=== PATIENT | female | born 1960 | race Caucasian/White ===

== ENCOUNTER → 2017-07-01 | Outpatient (CLI) | payer BC, SELFPAY | PROVIDERS: Referring Provider Physician Assistant; Visit Provider Nurse Practitioner Family | DX: R91.1 Solitary pulmonary nodule (principal); R73.9 Hyperglycemia, unspecified; K57.92 Diverticulitis of intestine, part unspecified, without perforation or abscess without bleeding; R10.32 Left lower quadrant pain | CPT/HCPCS: 36415; 71250; 74177; 82565; 83036; 84520; Q9967 ==

== ENCOUNTER → 2017-07-10 | Outpatient (CLI) | payer BC, SELFPAY | PROVIDERS: Family Provider Emergency Medicine; Visit Provider Nurse Practitioner Family | DX: R06.02 Shortness of breath (principal) | CPT/HCPCS: 94060; 94620; 94640; 94727; 94729 ==

== ENCOUNTER → 2017-07-20 12:42 | Outpatient (CLI) | payer BC, SELFPAY ==
--- NOTE | 2017-07-20 | XR_ITS ---
XR chest CHP 2V 1626 hours HISTORY: Follow-up biopsy, evaluate for pneumothorax ITS.REASON: SP CT BX RO PNEUMO DO ON EXPIRATION ORDERING PHYSICIAN: Laurie Baker PATIENT AGE: 57 years COMPARISON: Same day FINDINGS: The cardiomediastinal silhouette and pulmonary vascularity are within normal limits. The lungs are clear without infiltrates, suspicious nodules, or pleural effusions. No evidence of pneumothorax. Previously noted vague opacity in the right lung base laterally not apparent on this exam. The pulmonary nodule which was biopsied is below limits of resolution on the radiograph. No acute bony abnormalities. IMPRESSION: No acute finding, no evidence of pneumothorax
[2017-07-20 13:02] LABS: Basophils # 0.1 K/mm3 (0-0.2); Basophils % 0.5 % (0.1-2.0); Eosinophils # 0.4 K/mm3 (0.0-0.4); Eosinophils % 2.4 % (0.1-12.0); Hematocrit 45.4 % (37.0-47.0); Hemoglobin 14.9 g/dL (12.2-16.2); Lymphocytes # 4.4 K/mm3 (0.7-4.5); Lymphocytes % 28.5 K/mm3 (10-50); Mean Corpuscular HGB Conc 32.8 g/dL (31.8-35.4); Mean Corpuscular Hemoglobin 27.9 pg (27.0-31.2); Mean Corpuscular Volume 85.1 fl (81-99); Mean Platelet Volume 7.9 fl (7.4-10.4); Monocytes # 0.6 K/mm3 (0.1-1.0); Monocytes % 3.8 % (1.7-9.3); Neutrophils % 64.8 % (37.0-80.0); Platelet Count 372 K/mm3 (142-424); Red Blood Count 5.33 M/mm3 (4.20-5.40); White Blood Count 15.4 K/mm3 (4.8-10.8)
--- NOTE | 2017-07-20 13:03 | CT_ITS ---
CT CHEST WO CON CT ORGAN SITE LUNG RT, CT BIOPSY GUIDED NEEDLE, CLINICAL INDICATION: ITS.REASON: LUNG NODULE RLL ORDERING PHYSICIAN: Laurie Baker PATIENT AGE: 57 years COMPARISON: 07/01/2017 FINDINGS: Prebiopsy CT chest: CT chest performed without contrast was again confirms the presence of a soft tissue nodule in the right lung base anterolaterally containing a small lobulation. The nodule itself measures approximately 2 x 1.5 cm. TECHNIQUE: Following obtaining informed consent under aseptic conditions and local anesthesia with 1% lidocaine, a 22-gauge biopsy needle was inserted into the lesion under CT guidance. There was some difficulty with needle placement due to overlying rib. 3 passes were made into the nodule. On the final pass patient did have some minor hemoptysis. Pathology confirmed a specimen. Post biopsy x-ray showed no evidence of pneumothorax. There was some minor opacification adjacent to the nodule on the post biopsy images suggesting a small amount of acinar hemorrhage. Cytology: Negative for malignancy. Benign bronchial cells mesothelial cells and pulmonary macrophages. IMPRESSION: Status post CT-guided FNA of the right lower lobe nodule. Cytology was benign. However, recommend continued follow-up as there was some difficulty and biopsy the nodule due to overlying rib. Biopsy with LVATS may provide further evaluation if clinically desired.
[2017-07-20 13:04] LABS: MANUAL DIFFERENTIAL MANUAL DIFFERENTIAL (MANUAL DIFF)
[2017-07-20 13:14] LABS: Activated Partial Thrombo Time 24.1 seconds (23.6-34.0); INR 0.95 (0.9-1.1); Prothrombin Time 10.3 seconds (9.4-11.8)
[2017-07-20 13:58] LABS: Eosinophils % 3 % (0-3); Lymphocytes % 27 % (10-50); Monocytes % 2 % (2-9); Neutrophils % 67 % (42-76); Total Cells Counted 100
[2017-07-20 13:59] LABS: Platelet Estimate Normal
--- NOTE | 2017-07-20 14:34 | XR_ITS ---
XR chest 2V HISTORY: Follow-up lung biopsy, pulmonary nodule ITS.REASON: RO PNEUMOTHORAX DO 2 VIEW CXR ON EXPIRATION ORDERING PHYSICIAN: Laurie Baker PATIENT AGE: 57 years COMPARISON: 06/11/2017 FINDINGS: The cardiomediastinal silhouette and pulmonary vascularity are within normal limits. There is vague increased density in the right lung base overlying the seventh rib anteriorly may be due to small amount of hemorrhage from the biopsy. No evidence of pneumothorax. No pleural effusion.. No acute bony abnormalities. IMPRESSION: Vague opacity right lung base laterally which could be due to small amount of hemorrhage from the biopsy. No evidence of pneumothorax
--- NOTE | 2017-07-20 15:01 | HMH.ITSHM ---
LISINOPRIL HCTZ CITALOPRAM LEVOTHYROXIN VIT D METFORMIN
== END ==
PROVIDERS: Family Provider Emergency Medicine; PCP Emergency Medicine; Visit Provider Nurse Practitioner Family
DX: R91.1 Solitary pulmonary nodule (principal)
CPT/HCPCS: 10022; 77012; 36415; 71046; 71250; 85007; 85025; 85610; 85730

== ENCOUNTER 2017-08-03 08:28 | Day surgery (SDC) | payer BC, SELFPAY ==
[2017-07-29 11:29] VITALS: BMI 28.5
[2017-08-03] VITALS (8 sets, daily range): BP systolic 94–126; BP diastolic 59–79; PULSE 61–71; RESP 18–20; TEMP 36.6–36.7; O2SAT 93–100
[2017-08-03 09:02] LABS: POC Glucose,Bedside 127 mg/dL
--- NOTE | 2017-08-03 09:05 | HMH.ANESCL ---
[facility] Anesthesia Checklist - Patient Identification Patient Identification: Arm Band, Verbal (Name & ) - Structural Data Admitted From: Home Planned Operative Procedure/s: colonoscopy Consent for Planned Operative Procedure(s) Verified: Yes Verified Documents: Surgical Consent, History and Physical - NPO Status Verified Time NPO: 00:00 - Additional verifications Patient : No Anesthesia Reactions: No Hx Blood Transfusions: No Blood Transfusion Reaction: No Cephalosporin Allergy: No Previous Colonoscopy: No - Cardiovascular Assessment Heart Sounds: S1 & S2 Pulse Strength: Strong Pulse Rhythm: Regular Peripheral Edema: No - Airway Assessment C-Spine Mobility Assessed: Yes TMJ Mobility Assessed: Yes Dentition: Dentures-good fit - Neurological Assessment Level of Consciousness: Awake, Alert, Appropriate Hx Seizures: No Numbness or tingling in extremities: No - Anesthesia Plan Anesthesia Risk discussed: Yes Anesthesia Plan: Verified ASA Class: III Anesthesia Type: MAC [facility] Anesthesia HX I have reviewed the patient's past medical history: Yes Medical History: Reports:: Diabetes Mellitus Type 2 (NIDDM), Hyperlipidemia, Hypertension Denies:: Diabetes Mellitus Type 1, Internal Pacemaker, Lung Disease, Seizures Other Medical History: Reports: Hypothyroidism Laterality Cases: Bilateral: Total Hip Replacement Other Surgeries: Yes: Hysterectomy-Partial. No: Pacemaker Amputation: No Fractures: No Comment: choly *Family Hx:: Diabetes, Heart Attack, Hypertension
--- NOTE | 2017-08-03 09:25 | HMH.PROC ---
[facility] Procedure Note Procedure Note:: Colonoscopy Procedure Report: Colonoscopy with cold and hot snare polypectomy and Endo Clip placement Endoscopist: Pranav Berkowitz II, MD Referring physician: Yovani Garcia MD Date of Procedure: August 03, 2017 Equipment: Olympus 180 variable stiffness pediatric colonoscope Sedation: MAC sedation Indication: Mrs. Hollingsworth is a 57-year-old female who is here for initial screening colonoscopy. The patient did have diverticulitis after 2016 but this has resolved. She does have mostly regular bowel movements but does have bouts of diarrhea intermittently. She does state that her maternal uncle had colon cancer in his 60s and her sister had adenomatous colon polyps. The patient reports no abdominal pain, rectal bleeding, weight loss or change in her bowel habits. Procedure: Prior to the procedure, a history and physical exam was performed, and patient's medications and allergies were reviewed. The risks, benefits and alternatives of the sedation and procedure were discussed with the patient. All questions were answered and informed consent was obtained. The patient was brought to the procedure room. Patient identification and proposed procedure were verified by the physician and the nurse. The patient was placed in a left lateral decubitus position and the scope was passed under direct vision. Throughout the procedure, the patient's blood pressure, pulse, and oxygen saturations were monitored continuously. The colonoscopy was accomplished without difficulty. The patient tolerated the procedure well. Findings: On digital rectal examination there was normal rectal tone. There were no external hemorrhoids. The colonoscope was introduced through the anal canal to the rectum and advanced to the cecum. The ileocecal valve and appendiceal orifice were identified. The scope was advanced a short distance into the ileum which appeared grossly normal. The scope was then withdrawn into the colon. There were 17 colon polyps identified in the ascending ?2, transverse ?6, descending ?1 and sigmoid ?8. These ranged in size from 4-14 mm and all but 1 were all removed via cold snare polypectomy. The descending polyp was 14 mm and this was removed via snare cautery. The post polypectomy site was closed with an Endo Clip. There were scattered diverticuli throughout the descending and sigmoid colon (LEFT colon). The rectum itself was normal. Upon retroflexion within the rectum there were grade 1 internal hemorrhoids. Impression: 1. Colonic polyps ?17 2. Left-sided diverticulosis 3. Grade 1 internal hemorrhoids Plan: I will follow up the polyp pathology and recommend repeat colonoscopy again in 1-2 years based upon the polyp histology. I would encourage fiber supplementation on a long-term daily maintenance basis.
--- NOTE | 2017-08-03 09:49 | SUR.OPER ---
CAUTERY 200, COAG 25. GROUNDED TO RT THIGH. SKIN INTACT @ REMOVAL.
--- NOTE | 2017-08-03 10:03 | P.PCN_ITS ---
[facility] Procedure Note Procedure Note:: Colonoscopy Procedure Report: Colonoscopy with cold and hot snare polypectomy and Endo Clip placement Endoscopist: Pranav Berkowitz II, MD Referring physician: Yovani Garcia MD Date of Procedure: August 03, 2017 Equipment: Olympus 180 variable stiffness pediatric colonoscope Sedation: MAC sedation Indication: Mrs. Hollingsworth is a 57-year-old female who is here for initial screening colonoscopy. The patient did have diverticulitis after 2016 but this has resolved. She does have mostly regular bowel movements but does have bouts of diarrhea intermittently. She does state that her maternal uncle had colon cancer in his 60s and her sister had adenomatous colon polyps. The patient reports no abdominal pain, rectal bleeding, weight loss or change in her bowel habits. Procedure: Prior to the procedure, a history and physical exam was performed, and patient' s medications and allergies were reviewed. The risks, benefits and alternatives of the sedation and procedure were discussed with the patient. All questions were answered and informed consent was obtained. The patient was brought to the procedure room. Patient identification and proposed procedure were verified by the physician and the nurse. The patient was placed in a left lateral decubitus position and the scope was passed under direct vision. Throughout the procedure, the patient's blood pressure, pulse, and oxygen saturations were monitored continuously. The colonoscopy was accomplished without difficulty. The patient tolerated the procedure well. Findings: On digital rectal examination there was normal rectal tone. There were no external hemorrhoids. The colonoscope was introduced through the anal canal to the rectum and advanced to the cecum. The ileocecal valve and appendiceal orifice were identified. The scope was advanced a short distance into the ileum which appeared grossly normal. The scope was then withdrawn into the colon. There were 17 colon polyps identified in the ascending ?2, transverse ?6, descending ?1 and sigmoid ?8. These ranged in size from 4-14 mm and all but 1 were all removed via cold snare polypectomy. The descending polyp was 14 mm and this was removed via snare cautery. The post polypectomy site was closed with an Endo Clip. There were scattered diverticuli throughout the descending and sigmoid colon (LEFT colon). The rectum itself was normal. Upon retroflexion within the rectum there were grade 1 internal hemorrhoids. Impression: 1. Colonic polyps ?17 2. Left-sided diverticulosis 3. Grade 1 internal hemorrhoids Plan: I will follow up the polyp pathology and recommend repeat colonoscopy again in 1 -2 years based upon the polyp histology. I would encourage fiber supplementation on a long-term daily maintenance basis.
== END 2017-08-03 11:20 | disposition home or self-care (01) ==
LOC: OUTP 08:29
PROVIDERS: Family Provider Emergency Medicine; PCP Nurse Practitioner Family; Visit Provider Internal Medicine Gastroenterology
PROC: 0DJD8ZZ Inspection of Lower Intestinal Tract, Via Natural or Artificial Opening Endoscopic (ICD-10-PCS; CPT 45378; principal; 2017-08-03 09:30)
DX: Z12.11 Encounter for screening for malignant neoplasm of colon (principal); K63.5 Polyp of colon; K57.32 Diverticulitis of large intestine without perforation or abscess without bleeding; K64.0 First degree hemorrhoids; E11.9 Type 2 diabetes mellitus without complications
CPT/HCPCS: 45380; 82962

== ENCOUNTER → 2017-09-24 09:43 | Outpatient (CLI) | payer BC, SELFPAY ==
[2017-09-24 09:59] LABS: Basophils # 0.1 K/mm3 (0-0.2); Basophils % 0.4 % (0.1-2.0); Eosinophils # 0.3 K/mm3 (0.0-0.4); Eosinophils % 2.6 % (0.1-12.0); Hematocrit 45.1 % (37.0-47.0); Hemoglobin 15.3 g/dL (12.2-16.2); Lymphocytes # 3.3 K/mm3 (0.7-4.5); Lymphocytes % 26.8 K/mm3 (10-50); Mean Corpuscular HGB Conc 33.9 g/dL (31.8-35.4); Mean Corpuscular Hemoglobin 29.1 pg (27.0-31.2); Mean Corpuscular Volume 85.9 fl (81-99); Mean Platelet Volume 7.7 fl (7.4-10.4); Monocytes # 0.5 K/mm3 (0.1-1.0); Monocytes % 3.7 % (1.7-9.3); Neutrophils # 8.1 K/mm3 (1.8-7.8); Neutrophils % 66.5 % (37.0-80.0); Platelet Count 339 K/mm3 (142-424); Red Blood Count 5.25 M/mm3 (4.20-5.40); Red Cell Distribution Width 13.8 % (11.5-17.5); White Blood Count 12.2 K/mm3 (4.8-10.8)
[2017-09-24 10:35] LABS: Alanine Aminotransferase 33 U/L (12-78); Albumin Level 3.5 gm/dL (3.4-5.0); Albumin/Globulin Ratio 0.9 (1.1-1.8); Alkaline Phosphatase 91 U/L (46-116); Anion Gap 11.8 mEq/L (5-15); Aspartate Amino Transferase 16 U/L (15-37); Bilirubin,Total 0.4 mg/dL (0.2-1.0); Blood Urea Nitrogen 13 mg/dL (7-18); Calcium 9.1 mg/dL (8.5-10.1); Carbon Dioxide 28 mmol/L (21.0-32.0); Chloride 103 mmol/L (98-107); Chol/HDL Ratio 4.1 (1-3.5); Cholesterol 170 mg/dL (140-200); Creatinine,Serum 0.56 mg/dL (0.55-1.02); Estimated Glomerular Filt Rate 111 ml/min (>60); GFR (African American) 135 ML/MIN (>60); Globulin 4.1 gm/dl (1.3-3.2); Glucose 106 mg/dL (74-106); HDL Cholesterol 41 mg/dL (29-89); LDL Cholesterol 104 mg/dL (0-130); Potassium 3.8 mmoL/L (3.5-5.1); Sodium 139 mmol/L (136-145); T4 (Thyroxine) 12.3 ug/dl (4.7-13.3); Thyroid Stimulating Hormone 1.63 uIU/ml (0.358-3.740); Total Protein,Serum 7.6 gm/dL (6.4-8.2); Triglycerides 125 mg/dL (30-200); VLDL Cholesterol 25 mg/dL (0-40)
[2017-09-25 15:36] LABS: Vitamin D 25 Hydroxy 27.6 ng/mL (30.0-100.0)
[2017-09-25 22:02] LABS: Hemoglobin A1C 6.1 % (0.0-7.0)
== END ==
PROVIDERS: Visit Provider Nurse Practitioner Family
DX: E11.9 Type 2 diabetes mellitus without complications (principal); R53.83 Other fatigue; E78.5 Hyperlipidemia, unspecified
CPT/HCPCS: 36415; 80053; 80061; 82652; 83036; 84436; 84443; 85025

== ENCOUNTER → 2018-02-25 15:25 | Outpatient (CLI) | payer BC, SELFPAY ==
[2018-02-25 16:17] LABS: Hemoglobin A1C 6.6 % (0.0-7.0)
== END ==
PROVIDERS: Visit Provider Nurse Practitioner Family
DX: E11.9 Type 2 diabetes mellitus without complications (principal)
CPT/HCPCS: 36415; 83036

== ENCOUNTER → 2019-04-06 18:11 | Outpatient (CLI) | payer BC, SELFPAY ==
[2019-04-06 19:39] LABS: Basophils # 0.1 K/mm3 (0-0.2); Basophils % 0.5 % (0.1-2.0); Eosinophils # 0.3 K/mm3 (0.0-0.4); Eosinophils % 2.1 % (0.1-12.0); Hematocrit 48.1 % (37.0-47.0); Hemoglobin 15.1 g/dL (12.2-16.2); Lymphocytes # 3.5 K/mm3 (0.7-4.5); Lymphocytes % 25.8 % (10-50); Mean Corpuscular HGB Conc 31.4 g/dL (31.8-35.4); Mean Corpuscular Hemoglobin 27.9 pg (27.0-31.2); Mean Corpuscular Volume 88.7 fl (81-99); Mean Platelet Volume 9.1 fl (7.4-10.4); Monocytes # 0.7 K/mm3 (0.1-1.0); Monocytes % 5.4 % (1.7-9.3); Neutrophils # 8.9 K/mm3 (1.8-7.8); Neutrophils % 66.3 % (37.0-80.0); Platelet Count 432 K/mm3 (142-424); Red Blood Count 5.43 M/mm3 (4.20-5.40); White Blood Count 13.5 K/mm3 (4.8-10.8)
[2019-04-06 19:55] LABS: Alanine Aminotransferase 30 U/L (12-78); Albumin Level 3.9 gm/dL (3.4-5.0); Alkaline Phosphatase 109 U/L (46-116); Anion Gap 14.9 mEq/L (5-15); Aspartate Amino Transferase 24 U/L (15-37); Bilirubin,Total 0.6 mg/dL (0.2-1.0); Blood Urea Nitrogen 10 mg/dL (7-18); Calcium 9.1 mg/dL (8.5-10.1); Carbon Dioxide 27 mmol/L (21.0-32.0); Chloride 99 mmol/L (98-107); Cholesterol 174 mg/dL (140-200); Creatinine,Serum 0.64 mg/dL (0.55-1.02); Estimated Glomerular Filt Rate 95 ml/min (>60); GFR (African American) 115 ML/MIN (>60); Globulin 4.1 gm/dl (1.3-3.2); Glucose 98 mg/dL (74-106); HDL Cholesterol 35 mg/dL (29-89); LDL Cholesterol 105 mg/dL (0-130); Potassium 3.9 mmoL/L (3.5-5.1); Sodium 137 mmol/L (136-145); T4 (Thyroxine) 16.9 ug/dl (4.7-13.3); Thyroid Stimulating Hormone 2.61 uIU/ml (0.358-3.740); Triglycerides 169 mg/dL (30-200); VLDL Cholesterol 34 mg/dL (0-40)
[2019-04-06 21:04] LABS: Hemoglobin A1C 7.5 % (0.0-7.0)
[2019-04-08 10:10] LABS: Creatinine, Urine 34.9 mg/dL (Not Estab.); Microalbumin, Urine 68.9 ug/mL (Not Estab.)
[2019-04-09 13:46] LABS: Vitamin D 25 Hydroxy 27.9 ng/mL (30.0-100.0)
== END ==
PROVIDERS: Visit Provider Nurse Practitioner Family
DX: E11.9 Type 2 diabetes mellitus without complications (principal); E03.9 Hypothyroidism, unspecified; E55.9 Vitamin D deficiency, unspecified; Z79.84 Long term (current) use of oral hypoglycemic drugs
CPT/HCPCS: 80053; 80061; 82043; 82570; 82652; 83036; 84436; 84443; 85025

== ENCOUNTER → 2020-03-27 15:54 | Outpatient (CLI) | payer BC, SELFPAY ==
[2020-03-27 16:24] LABS: Basophils # 0.1 K/mm3 (0-0.2); Basophils % 0.5 % (0.1-2.0); Eosinophils # 0.3 K/mm3 (0.0-0.4); Eosinophils % 2.1 % (0.1-12.0); Hemoglobin 15.4 g/dL (12.2-16.2); Lymphocytes # 3.7 K/mm3 (0.7-4.5); Lymphocytes % 26.4 % (10-50); Mean Corpuscular HGB Conc 34.2 g/dL (31.8-35.4); Mean Corpuscular Hemoglobin 29.1 pg (27.0-31.2); Mean Corpuscular Volume 84.9 fl (81-99); Mean Platelet Volume 8.1 fl (7.4-10.4); Monocytes # 0.8 K/mm3 (0.1-1.0); Monocytes % 5.6 % (1.7-9.3); Neutrophils # 9.3 K/mm3 (1.8-7.8); Neutrophils % 65.4 % (37.0-80.0); Platelet Count 440 K/mm3 (142-424); Red Cell Distribution Width 13.9 % (11.5-17.5); White Blood Count 14.2 K/mm3 (4.8-10.8)
[2020-03-27 16:53] LABS: Chloride 99 mmol/L (98-107); Potassium 4.3 mmoL/L (3.5-5.1); Sodium 136 mmol/L (136-145)
[2020-03-27 16:55] LABS: Alanine Aminotransferase 20 U/L (12-78); Albumin/Globulin Ratio 1.2 (1.1-1.8); Alkaline Phosphatase 95 U/L (38-126); Anion Gap 13.3 mEq/L (5-15); Aspartate Amino Transferase 20 U/L (14-36); Bilirubin,Total 0.9 mg/dl (0.2-1.3); Blood Urea Nitrogen 16 mg/dl (7-17); Carbon Dioxide 28 mmol/L (22.0-30.0); Estimated Glomerular Filt Rate 126 ml/min (>60); GFR (African American) 152 ML/MIN (>60); Globulin 3.4 g/dL (1.3-3.2); Total Protein,Serum 7.4 g/dl (6.3-8.2)
[2020-03-27 16:56] LABS: Calcium 10.2 mg/dl (8.4-10.2); Chol/HDL Ratio 4.3 (1-3.5); Cholesterol 173 mg/dl (140-200); Glucose 90 mg/dl (74-100); HDL Cholesterol 40 mg/dl (40-60); Triglycerides 133 mg/dl (30-150); VLDL Cholesterol 27 mg/dL (0-40)
[2020-03-27 17:07] LABS: Direct LDL Cholesterol 112.55 mg/dL (100-129)
[2020-03-27 17:13] LABS: T4 (Thyroxine) 13.4 ug/dl (5.53-11.0)
[2020-03-27 17:19] LABS: Hemoglobin A1C 6.5 % (4.0-6.0)
[2020-03-27 17:26] LABS: Thyroid Stimulating Hormone 3.65 uIU/mL (0.465-4.68)
[2020-03-27 18:24] LABS: Creatinine,Urine Random 69 mg/dL (Not Estab.); Microalbumin < 6.000 mg/L (0-16.7)
== END ==
PROVIDERS: Visit Provider Nurse Practitioner Family
DX: E11.9 Type 2 diabetes mellitus without complications (principal); R53.83 Other fatigue; E66.9 Obesity, unspecified
CPT/HCPCS: 36415; 80053; 80061; 82043; 82570; 83036; 84436; 84443; 85025

== ENCOUNTER 2020-04-16 00:58 | Emergency (ER) | payer BC, MEDICAID, SELFPAY ==
[2020-04-16 01:00] VITALS: BP 131/72; PULSE 95; RESP 16; TEMP 37.3; O2SAT 96; BMI 30.9
--- NOTE | 2020-04-16 01:25 | XR_ITS ---
PROCEDURE: XR CHEST 2V CLINICAL HISTORY: fever Smoker, fever COMPARISON: CR CXR CHEST(2 VIEWS-NOT PORTABLE) from 06/11/[id number] ABD PELVIS W/ CONTRAST from 06/16/[address] CHEST W/O CONTRAST from 07/01/[id number] organ site from 07/20/2017 CR CXR2V XR chest 2V from 07/20/2017 DX CXRCHP XR chest CHP 2V from 07/20/2017 FINDINGS: The cardiomediastinal silhouette and pulmonary vascularity are within normal limits. No lobar consolidation or collapse. There is a 6 mm nodular opacity overlying the left upper lobe at the anterior aspect of the left 3rd rib. The remaining lungs are clear. Degenerative changes thoracic spine IMPRESSION: No acute finding. Faint 6 mm nodular opacity left upper lobe not readily apparent previously. Recommend follow-up to confirm stability Dictated by: Jorge Alvarado MD 04/16/2020 05:53 Jorge Alvarado MD in [place] 04/16/2020 05:53
[2020-04-16 01:30] VITALS: BP 100/56; PULSE 79; RESP 16; O2SAT 94
[2020-04-16 01:33] LABS: Microscopic, Urine URINE MICROSCOPIC (MICROSCOPIC)
[2020-04-16 01:35] LABS: Basophils # 0.1 K/mm3 (0-0.2); Basophils % 0.2 % (0.1-2.0); Eosinophils # 0.1 K/mm3 (0.0-0.4); Eosinophils % 0.3 % (0.1-12.0); Hematocrit 43.3 % (37.0-47.0); Hemoglobin 14.4 g/dL (12.2-16.2); Lymphocytes # 0.9 K/mm3 (0.7-4.5); Lymphocytes % 4.2 % (10-50); Mean Corpuscular HGB Conc 33.3 g/dL (31.8-35.4); Mean Corpuscular Hemoglobin 28.4 pg (27.0-31.2); Mean Corpuscular Volume 85.3 fl (81-99); Mean Platelet Volume 7.8 fl (7.4-10.4); Monocytes # 0.5 K/mm3 (0.1-1.0); Monocytes % 2.3 % (1.7-9.3); Neutrophils # 20.2 K/mm3 (1.8-7.8); Platelet Count 372 K/mm3 (142-424); Red Blood Count 5.07 M/mm3 (4.20-5.40); Red Cell Distribution Width 14.1 % (11.5-17.5); White Blood Count 21.7 K/mm3 (4.8-10.8)
[2020-04-16 01:41] LABS: Alanine Aminotransferase 35 U/L (12-78); Albumin Level 4.4 g/dl (3.5-5.0); Albumin/Globulin Ratio 1.2 (1.1-1.8); Alkaline Phosphatase 94 U/L (38-126); Anion Gap 14.2 mEq/L (5-15); Aspartate Amino Transferase 34 U/L (14-36); Bilirubin,Total 0.9 mg/dl (0.2-1.3); Blood Urea Nitrogen 14 mg/dl (7-17); Calcium 9.6 mg/dl (8.4-10.2); Carbon Dioxide 28 mmol/L (22.0-30.0); Chloride 100 mmol/L (98-107); Creatinine Clearance Estimated 96 mL/min (50-200); Estimated Glomerular Filt Rate 73 ml/min (>60); GFR (African American) 89 ML/MIN (>60); Globulin 3.8 g/dL (1.3-3.2); Glucose 143 mg/dl (74-100); Potassium 4.2 mmoL/L (3.5-5.1); Sodium 138 mmol/L (136-145); Total Protein,Serum 8.2 g/dl (6.3-8.2)
[2020-04-16 01:43] LABS: MANUAL DIFFERENTIAL MANUAL DIFFERENTIAL (MANUAL DIFF)
[2020-04-16 01:45] LABS: Appearance,Urine CLEAR (Clear); Blood, Urine Negative (Negative); Color,Urine YELLOW (Yellow); Glucose,Urine (UA) Negative (Negative); Ketones,Urine TRACE (Negative); Lactic Acid 2.2 mmol/L (0.7-2.1); Leukocyte Esterase,Urine Negative (Negative); Nitrate,Urine Negative (Negative); PH,Urine 8.5 (5.0-8.5); Protein,Urine Negative (Negative); Specific Gravity, Urine 1.015 (1.005-1.030)
[2020-04-16 01:49] LABS: Bilirubin,Urine Negative (Negative); Squamous Epithelial Cell,Urine 20-50 #/hpf (0-5)
[2020-04-16 01:52] LABS: Lymphocytes % 2 % (10-50); Neutrophils % 89 % (42-76); Platelet Estimate Normal; RBC Morphology Normal; Total Cells Counted 100
[2020-04-16 01:55] LABS: Coronavirus 19 IgG Antibody Negative (Negative); Coronavirus 19 IgM Antibody Negative (Negative)
--- NOTE | 2020-04-16 01:57 | HMH.EDFEV ---
ED Disposition Clinical Impression: Febrile illness, acute, SIRS (systemic inflammatory response syndrome) Disposition: Home, Self-Care Condition on Discharge: Good Instructions: DI for Fever (Symptom) -- Adult Additional Instructions: fluids and call pcp for follow up this week and culture results Prescriptions: levoFLOXacin [Levaquin 500mg tab] 500 mg PO DAILY #7 tab Transmission Status: Pending to [id number] Referrals: Yovani Garcia MD [Primary Care Provider] - - Critical Care Critical Care Time: No Attestation: On 04/16/20, the high probability of a clinically significant, sudden or life threatening deterioration of the following system(s) required my full and direct attention, intervention and personal management. The time I documented below is in addition to time spent performing reported procedures but includes the following listed in this critical care notation. Medical Decision Making - Medical Records Medical records reviewed: Yes: I reviewed the patient's medical records. - [place] Inquiry Pt receiving controlled substance: No Vital Signs: 04/16/20 01:00 04/16/20 01:30 Temperature 99.2 F Temperature Source Oral Pulse Rate [Left Radial] 95 H 79 Respiratory Rate 16 16 Blood Pressure [Right Arm] 131/72 100/56 L Blood Pressure Mean [Right Arm] 91 70 Blood Pressure Source [Right Arm] Automatic Cuff Automatic Cuff Blood Pressure Position [Right Arm] Sitting Sitting 02 Sat by Pulse Oximetry 96 94 L Oxygen Delivery Method Room Air Room Air - Lab Data Lab results reviewed: Yes: I reviewed the patient's lab results. Lab Results 04/16/20 01:20: Urine Color Yellow, Urine Appearance Clear, Urine pH 8.5, Ur Specific [place] 1.015, Urine Protein Negative, Urine Glucose (UA) Negative, Urine Ketones Trace, Urine Blood Negative, Urine Nitrate Negative, Urine Bilirubin Negative, Urine Urobilinogen 2.0, Ur Leukocyte Esterase Negative, Ur Squamous Epith Cells 20-50, Ur Renal Epithelial Cell 10-20 04/16/20 01:20: Sodium 138, Potassium 4.2, Chloride 100, Carbon Dioxide 28, Anion Gap 14.2, BUN 14, Creatinine 0.80, Estimated Creat Clear 96, Estimated GFR 73, Est GFR ( Amer) 89, Glucose 143 H, Calcium 9.6, Total Bilirubin 0.9, AST 34, ALT 35, Alkaline Phosphatase 94, Total Protein 8.2, Albumin 4.4, Globulin 3.8 H, Albumin/Globulin Ratio 1.2 04/16/20 01:20: Lactate 2.2 H 04/16/20 01:20: Influenza Type A Ag Negative, Influenza Type B Ag Negative 04/16/20 01:20: WBC 21.7 H*, RBC 5.07, Hgb 14.4, Hct 43.3, MCV 85.3, MCH 28.4, MCHC 33.3, RDW 14.1, Plt Count 372, MPV 7.8, Neut % (Auto) 93.0 H, Lymph % (Auto) 4.2 L, Mathews % (Auto) 2.3, Eos % (Auto) 0.3, Baso % (Auto) 0.2, Neut # (Auto) 20.2 H, Lymph # (Auto) 0.9, Mathews # (Auto) 0.5, Eos # (Auto) 0.1, Baso # (Auto) 0.1, Total Counted 100, Neutrophils % (Manual) 89 H, Band Neutrophils % 9.0 H, Lymphocytes % (Manual) 2 L, Platelet Estimate Normal, RBC Morphology Normal 04/16/20 01:20: SARS-CoV-2 IgG Ab (Rapid) Negative, SARS-CoV-2 IgM Ab (Rapid) Negative Result diagrams: 04/16/20 01:20 04/16/20 01:20 Orders (Tests/Meds): ORDERS Category Date Time Status XR chest 2V Stat Exams 04/16/20 01:25 Taken Covid-19 Nasal PCR ([facility]) Routine Lab 04/16/20 02:00 Received Blood Culture Stat Micro 04/16/20 01:20 Received - Radiology Data #1 Image(s): Chest Image Reviewed: Yes I reviewed the patient's radiology image Preliminary Findings: Normal/NAD Fever HPI - General Chief Complaint: Fever Stated Complaint: ,chills,confused,muscle aches Time Seen by Provider: 04/16/20 02:00 Mode of Arrival: Ambulatory Source of Information: Patient, Medical Record Limitations: No Limitations Description of Symptoms (Recalled from ER Triage Doc. by RN): pt stated she was on her way home from the store today around 7pm when she felt chilled pt got home and had a temp of 102.1 orally. pt took tylenol around 9pm and went to sleep. pt c/o a headache, body aches
[2020-04-16 02:30] VITALS: BP 114/63; PULSE 76; RESP 16; O2SAT 98
[2020-04-16 03:18] VITALS: BP 114/67; PULSE 78; RESP 16; TEMP 36.7; O2SAT 97
== END 2020-04-16 03:21 | disposition home or self-care (01) ==
PROVIDERS: Emergency Provider Emergency Medicine; PCP Emergency Medicine
DX: N30.00 Acute cystitis without hematuria (principal); R65.10 Systemic inflammatory response syndrome (SIRS) of non-infectious origin without acute organ dysfunction; Z20.828 Contact with and (suspected) exposure to other viral communicable diseases; E11.9 Type 2 diabetes mellitus without complications; I10 Essential (primary) hypertension; E78.5 Hyperlipidemia, unspecified; F41.8 Other specified anxiety disorders; E03.9 Hypothyroidism, unspecified; F17.210 Nicotine dependence, cigarettes, uncomplicated; Z96.641 Presence of right artificial hip joint; Z96.642 Presence of left artificial hip joint; Z79.899 Other long term (current) drug therapy
CPT/HCPCS: 71046; 80053; 81001; 83605; 85007; 85025; 86328; 87040; 87086; 87088; 87186; 87275; 87276; 96365; 99284; U0003

== ENCOUNTER → 2020-05-05 08:00 | Outpatient (CLI) | payer BC, MEDICAID, SELFPAY ==
[2020-05-05 09:48] LABS: Coronavirus 19 IgG Antibody Negative (Negative); Coronavirus 19 IgM Antibody Negative (Negative)
== END ==
PROVIDERS: Visit Provider Internal Medicine Gastroenterology
DX: Z01.818 Encounter for other preprocedural examination (principal); Z12.11 Encounter for screening for malignant neoplasm of colon
CPT/HCPCS: 36415; 86328

== ENCOUNTER 2020-05-07 07:36 | Day surgery (SDC) | payer BC, MEDICAID, SELFPAY ==
[2020-05-07] VITALS (7 sets, daily range): BP systolic 98–148; BP diastolic 57–70; PULSE 53–70; RESP 18; TEMP 36.1–36.7; O2SAT 90–97
[2020-05-07 08:02] LABS: POC Glucose,Bedside 118 (70-110)
--- NOTE | 2020-05-07 08:31 | HMH.PROC ---
[facility] Procedure Note Procedure Note:: Colonoscopy Procedure Report: Colonoscopy with cold snare polypectomy and cold biopsies Endoscopist: Praanv Berkowitz II, MD Referring physician: Yovani Garcia MD Date of Procedure: May 07, 2020 Equipment: Olympus 180 variable stiffness pediatric colonoscope Sedation: MAC sedation Indication: Mrs. Hollingsworth is a 60-year-old female who has had lower abdominal pain, cramps, diarrhea and rectal bleeding. She noted bloody mucousy diarrhea that was bright red in color. She was given antibiotics 2 to 3 weeks ago and had improvement. She states that this occurred after eating Polish cornbread. Colonoscopy is performed for diagnostic purposes. She did have some minor weight loss. The patient did have a colonoscopy almost 3 years ago (July 2017) at which time she had 17 colon polyps (tubular adenomas x10/hyperplastic polyps x7) removed. She does state that her maternal uncle had colon cancer in his 60s and she has sisters with adenomatous colon polyps. Procedure: Prior to the procedure, a history and physical exam was performed, and patient's medications and allergies were reviewed. The risks, benefits and alternatives of the sedation and procedure were discussed with the patient. All questions were answered and informed consent was obtained. The patient was brought to the procedure room. Patient identification and proposed procedure were verified by the physician and the nurse. The patient was placed in a left lateral decubitus position and the scope was passed under direct vision. Throughout the procedure, the patient's blood pressure, pulse, and oxygen saturations were monitored continuously. The colonoscopy was accomplished without difficulty. The patient tolerated the procedure well. Findings: On digital rectal examination there was normal rectal tone. There were no external hemorrhoids. The colonoscope was introduced through the anal canal to the rectum and advanced to the cecum. The ileocecal valve and appendiceal orifice were identified. The scope was advanced a short distance into the ileum which appeared grossly normal. The scope was then withdrawn into the colon. The cecum, ascending and transverse colon and mucosa were grossly normal. There was a diminutive 4 mm polyp in the descending colon removed via cold snare polypectomy. Within the distal descending and sigmoid colon there was haustral edema and mucosal edema without friability. This was in the watershed region of the colon and appeared to be healing colitis (probable healing ischemic colitis). Cold biopsies were obtained from this descending/sigmoid colon (left colon). There were scattered diverticuli throughout the descending and sigmoid colon (LEFT colon). The rectum itself was normal. Upon retroflexion within the rectum there were grade 1-2 internal hemorrhoids. The preparation was good throughout with [place] Preparation Score of 7 out of 9. The cecal time was 14 minutes. Impression: 1. Diminutive descending colon polyp 2. Resolving self-limited colitis (suspect resolving/regenerating ischemic colitis and watershed region?left colon) 3. Left-sided diverticulosis 4. Grade 1-2 internal hemorrhoids Plan: I would encourage dietary measures and bulk fiber supplementation. I will follow-up the biopsies. Based upon the patient's multiple adenomatous polyps in the past and family history, I would recommend repeat surveillance colonoscopy again in 5 years.
--- NOTE | 2020-05-07 08:35 | PC.NURSE ---
Pt arrived to post op having vomited small amt of yellow bile with small amt of bloody mucous during transport to post op. pt drowsy but responds to commands. VSS.
--- NOTE | 2020-05-07 08:44 | P.PN_ITS ---
[facility] Anesthesia Checklist - Patient Identification Patient Identification: Arm Band - Structural Data Admitted From: Home Planned Operative Procedure/s: colonoscopy Consent for Planned Operative Procedure(s) Verified: Yes Verified Documents: Surgical Consent, History and Physical - NPO Status Verified Time NPO: 00:00 - Additional verifications Anesthesia Reactions: No Hx Blood Transfusions: No Blood Transfusion Reaction: No - Airway Assessment C-Spine Mobility Assessed: Yes (mp2) TMJ Mobility Assessed: Yes Dentition: Edentulous - Neurological Assessment Level of Consciousness: Awake, Alert - Anesthesia Plan Anesthesia Risk discussed: Yes Anesthesia Plan: Verified ASA Class: III Anesthesia Type: MAC [facility] History I have reviewed the patient's past medical history: Yes Medical History: Reports:: Anxiety, Depression, Diabetes Mellitus Type 2, Hyperlipidemia, Hypertension Denies:: Cancer, Diabetes Mellitus Type 1, Internal Pacemaker, Lung Disease, MRSA, Seizures *Have you ever received a pneumonia vaccine?: No *Have you received a flu vaccine this season?: No Other Medical History: Reports: Hypothyroidism. Denies: Blood Transfusion Reaction Anesthesia experience/problems:: nac Laterality Cases: Bilateral: Total Hip Replacement Other Surgeries: Yes: Cholecystectomy, Colonoscopy, Hysterectomy-Total, Hysterectomy-Partial. No: Pacemaker Amputation: No Fractures: No - *Social History Last grade of school completed: Advanced degree Smoking Status: Current every day smoker Tobacco Type: cigarettes # Packs/Day (cigarettes): 1 #Yrs smoked (if former smoker): 30 Alcohol Intake: never Substance Use Type: denies use *Occupational Status:: employed Housing: house Household Members: significant other *Travel in the last 8 weeks: None - Psychiatric History Pschychiatric History:: Reports:: Anxiety, Depression Family Hx:: Diabetes, Heart Attack, Hypertension
== END 2020-05-07 09:32 | disposition home or self-care (01) ==
LOC: OUTP 07:37
PROVIDERS: PCP Emergency Medicine; Visit Provider Internal Medicine Gastroenterology
PROC: 0DJD8ZZ Inspection of Lower Intestinal Tract, Via Natural or Artificial Opening Endoscopic (ICD-10-PCS; CPT 45378; principal; 2020-05-07 08:30)
DX: Z86.010 Personal history of colon polyps (principal); K63.5 Polyp of colon; K57.30 Diverticulosis of large intestine without perforation or abscess without bleeding; K64.0 First degree hemorrhoids; I10 Essential (primary) hypertension; F41.9 Anxiety disorder, unspecified; E11.9 Type 2 diabetes mellitus without complications; F32.9 Major depressive disorder, single episode, unspecified; E78.5 Hyperlipidemia, unspecified; Z79.84 Long term (current) use of oral hypoglycemic drugs; Z79.899 Other long term (current) drug therapy
CPT/HCPCS: 45385; 45380; 82962

== ENCOUNTER 2020-08-13 11:03 | Emergency (ER) | payer BC, OTHER, SELFPAY ==
[2020-08-13 11:10] VITALS: BP 138/73; PULSE 65; RESP 20; TEMP 36.3; O2SAT 96; BMI 29.2
--- NOTE | 2020-08-13 11:26 | HMH.EDUTC ---
[facility] Disposition Clinical Impression: Close exposure to COVID-19 virus Disposition: Home, Self-Care Condition on Discharge: Good Instructions: DI for COVID-19 (Suspected or Confirmed ), Coronavirus Disease 2019, Preventing the Spread of Coronavirus Discharge Instructions Additional Instructions: *Monitor Temp, Over the counter Motrin or Tylenol as directed/as needed Tylenol every 4 hours and Motrin every 6 hours (as long as your family doctor has told you that you can take it) for fever or pain. and straight to ER if unable to lower temp less than 101.0 after medication given Follow up IMMEDIATELY for new or worsening symptoms or no Noticeable improvement over the next 48-72 hours. 911 for difficulty breathing or swallowing You were tested for today for COVID19 your test result should be back in the next 24-48 hours, you may call to the [facility] to see if your test results are back in the next 48 hours [phone] [facility] hours are 9am-9pm You was given a handout with instructions for Self Quarantine and Self isolation for while you wait on test results and what to do if they are positive If you are positive the Health Dept will be contacting you also Referrals: Troy Ag APRN [Primary Care Provider] - As needed Forms: Work/School Release Time of Disposition: 11:27 Medical Decision Making - Iglesia Inquiry Pt receiving controlled substance: No Iglesia was queried for this patient: No Vital Signs: 08/13/20 11:10 Temperature 97.4 F L Temperature Source Oral Pulse Rate [Right Brachial] 65 Respiratory Rate 20 Blood Pressure [Right Arm] 138/73 Blood Pressure Mean [Right Arm] 94 Blood Pressure Source [Right Arm] Automatic Cuff Blood Pressure Position [Right Arm] Sitting 02 Sat by Pulse Oximetry 96 Oxygen Delivery Method Room Air Orders (Tests/Meds): ORDERS Category Date Time Status Covid-19 Nasal PCR ([facility]) Routine Lab 08/13/20 11:[address] [facility] HPI - General Stated complaint: Covid Test Time Seen by Provider: 08/13/20 11:26 Mode of Arrival: Ambulatory Source of Information: Patient Limitations: No Limitations Description of Symptoms (Recalled from Triage Doc. by RN): COVID TEST D/T EXPOSURE. DENIES SYMPTOMS HEENT Symptoms (Recalled from RN notes): No Resp Symptoms (Recalled from RN notes): No Skin Symptoms (Recalled from RN notes): No MS Symptoms (Recalled from RN notes): No Functional Status (Recalled from RN notes): WNL - History of Present Illness Provider Complaint: Patient states that she was recently exposed to someone that was positive for COVID States that she isnt having any symptoms but wanted to get tested for COVID - Related Data Home Medications Medication Instructions Recorded Confirmed Citalopram Hydrobromide See Rx Instructions .ROUTE .COMPLEX 05/07/20 08/10/20 [Citalopram HBr] Metformin HCl [Glucophage] See Rx Instructions .ROUTE .COMPLEX 05/07/20 08/10/20 hydroCHLOROthiazide [HCTZ 25mg See Rx Instructions .ROUTE .COMPLEX 05/07/20 08/10/20 tab] lisinopriL [Prinivil 20mg Tablet] See Rx Instructions .ROUTE .COMPLEX 05/07/20 08/10/20 Previous Rx's Medication Instructions Recorded ibuprofen 800 mg tablet See Rx Instructions .ROUTE 05/07/20 .COMPLEX PRN 30 Days #90 tab Allergies Allergy/AdvReac Type Severity Reaction Status Date / Time No Known Allergies Allergy Verified 08/10/20 15:14 - Worker's Comp Is this a Worker's Comp case?: No [facility] History - Hepatitis A Screen Drug use history?: No High risk sexual behaviors?: No History of sexually transmitted infection?: No Currently employed?: No Childcare worker?: No Do you have indoor plumbing?: Yes Do you have electricity?: Yes Attestation statement:: This patient has been screened for Hepatitis A risk factors. I have reviewed the patient's past medical history: Yes Medical History: Reports:: Anxiety, Depression, Diabetes Mellitus Type 2, Hyperlipidemia, Hypertension Denies:: Cancer, Anais
[2020-08-13 11:37] VITALS: BP 138/73; PULSE 65; RESP 20; TEMP 36.3; O2SAT 96
== END 2020-08-13 11:41 | disposition home or self-care (01) ==
PROVIDERS: Emergency Provider Nurse Practitioner; PCP Nurse Practitioner Family
DX: Z20.822 Contact with and (suspected) exposure to COVID-19 (principal); I10 Essential (primary) hypertension; E03.9 Hypothyroidism, unspecified; F41.8 Other specified anxiety disorders; E11.9 Type 2 diabetes mellitus without complications; E78.5 Hyperlipidemia, unspecified; F17.210 Nicotine dependence, cigarettes, uncomplicated; Z79.899 Other long term (current) drug therapy
CPT/HCPCS: 99202; G0463; U0003

== ENCOUNTER → 2021-03-01 16:55 | Outpatient (CLI) | payer BC, OTHER, SELFPAY ==
[2021-03-01 18:00] LABS: Adenovirus,PCR Not Detected (NotDetected); Bordetella Pertussis Not Detected (NotDetected); Chlamydophila Pneumoniae, PCR Not Detected (NotDetected); Coronavirus 19, PCR Not Detected (NotDetected); Coronavirus 229E Not Detected (NotDetected); Coronavirus NL63 Not Detected (NotDetected); Coronavirus OC43 Not Detected (NotDetected); Coronovirus HKU1,PCR Not Detected (NotDetected); Human Metapneumovirus Not Detected (NotDetected); Influenza A, PCR Not Detected (NotDetected); Influenza AH1, 2009 Not Detected (NotDetected); Influenza AH1, PCR Not Detected (NotDetected); Influenza AH3,PCR Not Detected (NotDetected); Influenza B, PCR Not Detected (NotDetected); Mycoplasma Pneumoniae, PCR Not Detected (NotDetected); Parainfluenza 1, PCR Not Detected (NotDetected); Parainfluenza 2, PCR Not Detected (NotDetected); Parainfluenza 3, PCR Not Detected (NotDetected); Parainfluenza 4, PCR Not Detected (NotDetected); Respiratory Syncytial Virus Not Detected (NotDetected); Rhinovirus/Enterovirus Not Detected (NotDetected)
[2021-03-01 18:29] LABS: Basophils # 0.1 K/mm3 (0-0.2); Basophils % 0.7 % (0.1-2.0); Eosinophils # 0.2 K/mm3 (0.0-0.4); Eosinophils % 1.6 % (0.1-12.0); Hematocrit 44.5 % (37.0-47.0); Hemoglobin 14.7 g/dL (12.2-16.2); Lymphocytes # 2.8 K/mm3 (0.7-4.5); Lymphocytes % 21.4 % (10-50); Mean Corpuscular Hemoglobin 27.9 pg (27.0-31.2); Mean Corpuscular Volume 84.6 fl (81-99); Mean Platelet Volume 8.6 fl (7.4-10.4); Monocytes # 0.6 K/mm3 (0.1-1.0); Monocytes % 4.4 % (1.7-9.3); Neutrophils # 9.5 K/mm3 (1.8-7.8); Platelet Count 424 K/mm3 (142-424); Red Blood Count 5.26 M/mm3 (4.20-5.40); Red Cell Distribution Width 14.2 % (11.5-17.5); White Blood Count 13.1 K/mm3 (4.8-10.8)
[2021-03-01 18:36] LABS: Creatinine,Urine Random 105 mg/dL (Not Estab.)
[2021-03-01 18:38] LABS: Chloride 105 mmol/L (98-107); Potassium 4.9 mmoL/L (3.5-5.1); Sodium 138 mmol/L (136-145)
[2021-03-01 18:40] LABS: Alanine Aminotransferase 13 U/L (12-78); Aspartate Amino Transferase 18 U/L (14-36); Blood Urea Nitrogen 12 mg/dl (7-17); Estimated Glomerular Filt Rate 102 ml/min (>60); GFR (African American) 123 ML/MIN (>60)
[2021-03-01 18:41] LABS: Albumin Level 3.9 g/dl (3.5-5.0); Albumin/Globulin Ratio 1.2 (1.1-1.8); Alkaline Phosphatase 97 U/L (38-126); Anion Gap 13.9 mEq/L (5-15); Bilirubin,Total 0.6 mg/dl (0.2-1.3); Calcium 9.6 mg/dl (8.4-10.2); Carbon Dioxide 24 mmol/L (22.0-30.0); Cholesterol 178 mg/dl (140-200); Globulin 3.3 g/dL (1.3-3.2); Glucose 111 mg/dl (74-100); Total Protein,Serum 7.2 g/dl (6.3-8.2); Triglycerides 112 mg/dl (30-150); VLDL Cholesterol 22 mg/dL (0-40)
[2021-03-01 18:42] LABS: Chol/HDL Ratio 3.8 (1-3.5); HDL Cholesterol 47 mg/dl (40-60)
[2021-03-01 18:54] LABS: Direct LDL Cholesterol 105.51 mg/dL (100-129)
[2021-03-01 18:56] LABS: 25-OH Vitamin D, Total 26.1 ng/mL (30-100)
[2021-03-01 18:58] LABS: Hemoglobin A1C 5.8 % (4.0-6.0)
[2021-03-01 18:59] LABS: T4 (Thyroxine) 13.1 ug/dl (5.53-11.0)
[2021-03-01 19:12] LABS: Thyroid Stimulating Hormone 3.89 uIU/mL (0.465-4.68)
== END ==
PROVIDERS: Visit Provider Nurse Practitioner Family
DX: E03.9 Hypothyroidism, unspecified (principal); E11.9 Type 2 diabetes mellitus without complications; E55.9 Vitamin D deficiency, unspecified; E78.5 Hyperlipidemia, unspecified; I10 Essential (primary) hypertension; Z79.84 Long term (current) use of oral hypoglycemic drugs
CPT/HCPCS: 80053; 80061; 82043; 82306; 82570; 83036; 84436; 84443; 85025; 87581; 87633; 87798

== ENCOUNTER 2023-03-23 16:38 | Emergency (ER) | payer BC, SELFPAY ==
[2023-03-23 17:50] VITALS: BP 108/76; PULSE 68; RESP 17; TEMP 36.8; O2SAT 98; BMI 26.6
[2023-03-23 18:02] LABS: Microscopic, Urine URINE MICROSCOPIC (MICROSCOPIC)
[2023-03-23 18:09] LABS: Appearance,Urine CLEAR (Clear); Bilirubin,Urine Negative (Negative); Blood, Urine Negative (Negative); Color,Urine YELLOW (Yellow); Glucose,Urine (UA) Negative (Negative); Ketones,Urine Negative (Negative); Leukocyte Esterase,Urine Negative (Negative); Nitrate,Urine Negative (Negative); Protein,Urine Negative (Negative)
--- NOTE | 2023-03-23 18:22 | EXP.UTC ---
Discharge Plan Disposition Patient Disposition: Home, Self-Care Condition: Good Prescriptions Prescriptions: No Action clobetasol 0.05 % cream 1 applic topical DAILY Qty: 30 11RF estradiol [Estrace] 0.01 % (0.1 mg/gram) cream 1 appful vaginal DAILY Qty: 42.5 5RF Rx Instructions: for 14 days ergocalciferol (vitamin D2) 1,250 mcg (50,000 unit) capsule See Rx Instructions .ROUTE .COMPLEX Qty: 6 0RF Dose Instruction: Take 1 capsule by mouth once a week Rx Instructions: Take 1 capsule by mouth once a week citalopram 20 mg tablet See Rx Instructions .ROUTE .COMPLEX Qty: 90 0RF Dose Instruction: TAKE 1 TABLET BY MOUTH ONCE DAILY FOR ANXIETY FOR DEPRESSION Rx Instructions: TAKE 1 TABLET BY MOUTH ONCE DAILY FOR ANXIETY FOR DEPRESSION hydrochlorothiazide 25 mg tablet See Rx Instructions .ROUTE .COMPLEX Qty: 90 0RF Dose Instruction: TAKE 1 TABLET BY MOUTH ONCE DAILY FOR FLUID FOR BLOOD PRESSURE Rx Instructions: TAKE 1 TABLET BY MOUTH ONCE DAILY FOR FLUID FOR BLOOD PRESSURE ibuprofen 800 mg tablet See Rx Instructions .ROUTE .COMPLEX Qty: 90 0RF Dose Instruction: TAKE 1 TABLET BY MOUTH THREE TIMES DAILY NEEDED FOR PAIN Rx Instructions: TAKE 1 TABLET BY MOUTH THREE TIMES DAILY NEEDED FOR PAIN lisinopril 20 mg tablet See Rx Instructions .ROUTE .COMPLEX Qty: 90 0RF Dose Instruction: Take 1 tablet by mouth once daily for blood pressure Rx Instructions: Take 1 tablet by mouth once daily for blood pressure metformin 500 mg tablet extended release 24 hr See Rx Instructions .ROUTE .COMPLEX Qty: 90 3RF Dose Instruction: Take 1 tablet by mouth once daily Rx Instructions: Take 1 tablet by mouth once daily Referrals Follow up/Referrals: Troy Ag APRN [Primary Care Provider] - See instructions Activity Restrictions/Add. Instructions Additional Instructions/Restrictions: Drink extra fluids with and between meals. If you have difficulty drinking, try very small amounts of water or suck on ice chips. ? Avoid fruit juices, as these do not replace minerals and can actually increase diarrhea. ? Eat food in small amounts and let your stomach recover. ? Get lots of rest. You may feel tired or weak. ? No greasy or fried foods for the next 24-48 hours BRAT diet Bananas Rice Apples and [place] ? Make sure to drink plenty of liquids ? Return if needed ? Straight to ER if any life threatening symptoms ? Follow up with family doctor in the next 48-72 hours if no improvement or any worsening of symptoms Take antibiotics as you was prescribed Fo Clinical Impressions Clinical Impression: Abdominal cramping Instructions Patient Instructions: DI for Diverticulitis, Diverticulitis Discharge ED Provider: Mi Felder [facility] General Stated complaint: cramping stomach back pain Mode of Arrival: Ambulatory Source of Information: Patient Limitations: No Limitations Time Seen by Provider: 03/23/23 18:22 Description of Symptoms (Recalled from Triage Doc. by RN): PATIENT C/O STOMACH CRAMPING AND LEFT FLANK PAIN SINCE THURSDAY HEENT Symptoms (Recalled from RN notes): No Resp Symptoms (Recalled from RN notes): No Skin Symptoms (Recalled from RN notes): No MS Symptoms (Recalled from RN notes): No Functional Status (Recalled from RN notes): WNL History of Present Illness Provider Complaint: Patient states that she has been having cramping in her lower abdomen and achy like feeling in her left flank area since Thursday States that she has hx of UTI and Diverticulitis States that she spoke with her PCP and they called her in some antibiotics but she wanted to come in and get her urine tested to see if she may have a UTI again Related Data Previous Rx's Medication Instructions Recorded ergocalciferol (vitamin D2) 1,250 See Rx Instructions .Lisandra
[2023-03-23 18:28] LABS: Squamous Epithelial Cell,Urine Occasional #/hpf (0-5)
[2023-03-23 18:43] VITALS: BP 108/76; PULSE 68; RESP 17; TEMP 36.8; O2SAT 98
== END 2023-03-23 18:44 | disposition home or self-care (01) ==
PROVIDERS: Emergency Provider Nurse Practitioner; PCP Nurse Practitioner Family
DX: R10.30 Lower abdominal pain, unspecified (principal); M62.838 Other muscle spasm; F17.210 Nicotine dependence, cigarettes, uncomplicated
CPT/HCPCS: 81001; 99212; 99214; G0463

== ENCOUNTER 2023-03-26 16:59 | Emergency (ER) | payer BC, SELFPAY ==
[2023-03-26 17:00] VITALS: BP 96/61; PULSE 72; RESP 16; TEMP 36.5; O2SAT 98; BMI 27.4
--- NOTE | 2023-03-26 17:28 | CT_ITS ---
PROCEDURE INFORMATION: Exam: CT Abdomen And Pelvis With Contrast Exam date and time: 03/26/2023 5:58 PM Age: 62 years old Clinical indication: Other: Llq pain; Additional info: L flank llq pain TECHNIQUE: Imaging protocol: Computed tomography of the abdomen and pelvis with contrast. Radiation optimization: All CT scans at this facility use at least one of these dose optimization techniques: automated exposure control; mA and/or kV adjustment per patient size (includes targeted exams where dose is matched to clinical indication); or iterative reconstruction. Contrast material: ISOVUE; Contrast volume: 75 ml; Contrast route: IV; REPORTING DATA: Count of CT and Cardiac NM exams in prior 12 months: This patient has received 0 known CTs and 0 known cardiac nuclear medicine studies in the 12 months prior to the current study. COMPARISON: No relevant prior studies available. FINDINGS: Lungs: Calcified granuloma at the right lung base measures 19 mm in diameter. Diaphragm: A small sliding hiatal hernia is present. Liver: There is diffuse hypoattenuation of the liver compatible with moderate hepatic steatosis. Gallbladder and bile ducts: There are surgical clips within the gallbladder fossa. Pancreas: Normal. No ductal dilation. Spleen: Normal. No splenomegaly. Adrenal glands: Normal. No mass. Kidneys and ureters: Normal. No hydronephrosis. Stomach and bowel: Dxzu-so-cbrgyaea wall thickening with inflammatory changes in loss of haustra of the colon from the hepatic flexure to the sigmoid colon has differential diagnosis of inflammatory colitis less likely infectious colitis. Appendix: The appendix is not definitely identified, but there are no primary or secondary CT findings to suggest a diagnosis of acute appendicitis. Intraperitoneal space: Unremarkable. No free air. No significant fluid collection. Vasculature: Moderate calcific atherosclerotic disease of the abdominal aorta without aneurysmal dilatation is present. Lymph nodes: Unremarkable. No enlarged lymph nodes. Urinary bladder: Unremarkable as visualized. Reproductive: Unremarkable as visualized. Bones/joints: Bilateral hip arthroplasty with metal artifact that obscures evaluation of the lower pelvis. Moderate loss of intervertebral disc space with degenerative changes at L4 through S1. Soft tissues: Normal. IMPRESSION: Ohdv-je-nbfvzjir wall thickening with inflammatory changes and loss of haustra of the colon from the hepatic flexure to the sigmoid colon has differential diagnosis of inflammatory colitis less likely infectious colitis.
[2023-03-26 17:32] LABS: Appearance,Urine CLEAR (Clear); Bilirubin,Urine Negative (Negative); Blood, Urine Negative (Negative); Color,Urine YELLOW (Yellow); Glucose,Urine (UA) Negative (Negative); Ketones,Urine Negative (Negative); Leukocyte Esterase,Urine Negative (Negative); Microscopic, Urine URINE MICROSCOPIC (MICROSCOPIC); Nitrate,Urine Negative (Negative); Protein,Urine Negative (Negative); Specific Gravity, Urine >= 1.030 (1.005-1.030)
[2023-03-26 17:35] LABS: Chloride 99 mmol/L (98-107)
[2023-03-26 17:36] LABS: Potassium 3.7 mmoL/L (3.5-5.1); Sodium 133 mmol/L (136-145)
--- NOTE | 2023-03-26 17:36 | HMH.EDGENADL ---
Discharge Plan Disposition Patient Disposition: Home, Self-Care Condition: Good Prescriptions Prescriptions: New prednisone 50 mg tablet 50 mg PO DAILY 7 Days Qty: 7 0RF ondansetron 4 mg tablet,disintegrating 4 mg PO Q8H PRN (Reason: nausea and vomiting) 4 Days Qty: 12 0RF No Action clobetasol 0.05 % cream 1 applic topical DAILY Qty: 30 11RF estradiol [Estrace] 0.01 % (0.1 mg/gram) cream 1 appful vaginal DAILY Qty: 42.5 5RF Rx Instructions: for 14 days ergocalciferol (vitamin D2) 1,250 mcg (50,000 unit) capsule See Rx Instructions .ROUTE .COMPLEX Qty: 6 0RF Dose Instruction: Take 1 capsule by mouth once a week Rx Instructions: Take 1 capsule by mouth once a week citalopram 20 mg tablet See Rx Instructions .ROUTE .COMPLEX Qty: 90 0RF Dose Instruction: TAKE 1 TABLET BY MOUTH ONCE DAILY FOR ANXIETY FOR DEPRESSION Rx Instructions: TAKE 1 TABLET BY MOUTH ONCE DAILY FOR ANXIETY FOR DEPRESSION hydrochlorothiazide 25 mg tablet See Rx Instructions .ROUTE .COMPLEX Qty: 90 0RF Dose Instruction: TAKE 1 TABLET BY MOUTH ONCE DAILY FOR FLUID FOR BLOOD PRESSURE Rx Instructions: TAKE 1 TABLET BY MOUTH ONCE DAILY FOR FLUID FOR BLOOD PRESSURE ibuprofen 800 mg tablet See Rx Instructions .ROUTE .COMPLEX Qty: 90 0RF Dose Instruction: TAKE 1 TABLET BY MOUTH THREE TIMES DAILY NEEDED FOR PAIN Rx Instructions: TAKE 1 TABLET BY MOUTH THREE TIMES DAILY NEEDED FOR PAIN lisinopril 20 mg tablet See Rx Instructions .ROUTE .COMPLEX Qty: 90 0RF Dose Instruction: Take 1 tablet by mouth once daily for blood pressure Rx Instructions: Take 1 tablet by mouth once daily for blood pressure metformin 500 mg tablet extended release 24 hr See Rx Instructions .ROUTE .COMPLEX Qty: 90 3RF Dose Instruction: Take 1 tablet by mouth once daily Rx Instructions: Take 1 tablet by mouth once daily Referrals Follow up/Referrals: Troy Ag APRN [Primary Care Provider] - See instructions Activity Restrictions/Add. Instructions Additional Instructions/Restrictions: You were evaluated in the emergency department today. Please stop taking the antibiotics at home. supervisor adult education your prescription for steroids and take them as prescribed. Follow-up with your primary care provider over the next 3 days. Take Tylenol at home as needed for pain. Hydrate is much as possible. Eat a bland diet. I recommend close follow-up with gastroenterology, which your primary care provider will be able to help set up. Clinical Impressions Clinical Impression: Colitis Instructions Patient Instructions: DI for Acute Abdominal Pain, DI for Colitis Discharge ED Provider: Jeni Valencia General Adult HPI General Chief complaint: Abdominal Pain Stated complaint: lower Left side and back Time Seen by Provider: 03/26/23 17:14 Mode of Arrival: Ambulatory Source of Information: Patient Limitations: No Limitations Description of Symptoms (Recalled from ER Triage Doc. by RN): Presents to ED with 8/10 LLQ pain since thursday with gurgling noises coming from her belly. Patient reports she is nauseous and has vomited some bile. Patient reports having Diverticulosis and takes Ciprofloxacin twice a day. History of Present Illness HPI narrative: This patient is a 62-year-old female with a history of hypertension, hyperlipidemia, depression, anxiety, diabetes, and diverticulitis presenting to the emergency department for evaluation with concern for left lower quadrant abdominal pain. She also notes that she is having a lot of gurgling coming from her belly and her stools have been thinner than usual. She states that she has had nausea and vomiting as well. She states that on Thursday when she first noticed the symptoms, she started taking ciprofloxacin that she had at home given her history of diverticulitis. It has not seemed to help. Given the continued pain,
[2023-03-26 17:38] LABS: Alanine Aminotransferase 23 U/L (12-78); Alkaline Phosphatase 93 U/L (38-126); Aspartate Amino Transferase 23 U/L (14-36); Basophils # 0.1 K/mm3 (0-0.2); Basophils % 0.5 % (0.1-2.0); Bilirubin,Total 0.9 mg/dl (0.2-1.3); Blood Urea Nitrogen 20 mg/dl (7-17); Creatinine Clearance Estimated 66 mL/min (50-200); Eosinophils # 0.2 K/mm3 (0.0-0.4); Eosinophils % 1.2 % (0.1-12.0); Estimated Glomerular Filt Rate 72 ml/min (>60); GFR (African American) 88 ML/MIN (>60); Hematocrit 45.1 % (37.0-47.0); Hemoglobin 14.6 g/dL (12.2-16.2); Lymphocytes % 22.4 % (10-50); Mean Corpuscular HGB Conc 32.2 g/dL (31.8-35.4); Mean Corpuscular Hemoglobin 27.5 pg (27.0-31.2); Mean Corpuscular Volume 85.3 fl (81-99); Mean Platelet Volume 7.6 fl (7.4-10.4); Monocytes # 0.6 K/mm3 (0.1-1.0); Monocytes % 4.3 % (1.7-9.3); Neutrophils # 9.4 K/mm3 (1.8-7.8); Neutrophils % 71.6 % (37.0-80.0); Platelet Count 452 K/mm3 (142-424); Red Blood Count 5.29 M/mm3 (4.20-5.40); Red Cell Distribution Width 14.2 % (11.5-17.5); White Blood Count 13.2 K/mm3 (4.8-10.8)
[2023-03-26 17:39] LABS: Albumin Level 3.9 g/dl (3.5-5.0); Albumin/Globulin Ratio 1.1 (1.1-1.8); Anion Gap 11.7 mEq/L (5-15); Calcium 9.9 mg/dl (8.4-10.2); Carbon Dioxide 26 mmol/L (22.0-30.0); Globulin 3.5 g/dL (1.3-3.2); Glucose 130 mg/dl (74-100); Total Protein,Serum 7.4 g/dl (6.3-8.2)
--- NOTE | 2023-03-26 18:53 | PC.NURSE ---
Rounded on patient call light within reach nothing needed at this time. Warm blanket provided to patient
[2023-03-26 19:00] VITALS: BP 96/59; PULSE 61; RESP 16; O2SAT 97
[2023-03-26 19:31] VITALS: BP 108/59; PULSE 59; RESP 17; O2SAT 97
--- NOTE | 2023-03-26 19:54 | PC.NURSE ---
Rounded on patient; PO challenged patient per MD orders. Will evaluate after drinking a bottle of water
[2023-03-26 20:00] VITALS: BP 98/52; PULSE 55; RESP 16; O2SAT 96
[2023-03-26 20:13] VITALS: BP 108/59; PULSE 55; RESP 16; TEMP 36.5; O2SAT 96
== END 2023-03-26 20:16 | disposition home or self-care (01) ==
PROVIDERS: Emergency Provider Emergency Medicine; PCP Nurse Practitioner Family
DX: R10.32 Left lower quadrant pain (principal); K52.9 Noninfective gastroenteritis and colitis, unspecified; I10 Essential (primary) hypertension; E78.5 Hyperlipidemia, unspecified; F32.A Depression, unspecified; F41.9 Anxiety disorder, unspecified; E11.9 Type 2 diabetes mellitus without complications; F17.210 Nicotine dependence, cigarettes, uncomplicated
CPT/HCPCS: 74177; 80053; 81001; 85025; 96361; 96374; 96375; 99285; J0131; J2405; Q9967

== ENCOUNTER 2023-04-01 15:21 | Emergency (ER) | payer BC, SELFPAY ==
[2023-04-01] VITALS (11 sets, daily range): BP systolic 97–121; BP diastolic 47–74; PULSE 55–112; RESP 18–20; TEMP 36.4–37.1; O2SAT 93–98; BMI 27.4
--- NOTE | 2023-04-01 15:49 | HMH.EDGENADL ---
Discharge Plan Disposition Patient Disposition: Xfer Short-Term Hosp Prescriptions Prescriptions: No Action clobetasol 0.05 % cream 1 applic topical DAILY Qty: 30 11RF estradiol [Estrace] 0.01 % (0.1 mg/gram) cream 1 appful vaginal DAILY Qty: 42.5 5RF Rx Instructions: for 14 days ergocalciferol (vitamin D2) 1,250 mcg (50,000 unit) capsule See Rx Instructions .ROUTE .COMPLEX Qty: 6 0RF Dose Instruction: Take 1 capsule by mouth once a week Rx Instructions: Take 1 capsule by mouth once a week citalopram 20 mg tablet See Rx Instructions .ROUTE .COMPLEX Qty: 90 0RF Dose Instruction: TAKE 1 TABLET BY MOUTH ONCE DAILY FOR ANXIETY FOR DEPRESSION Rx Instructions: TAKE 1 TABLET BY MOUTH ONCE DAILY FOR ANXIETY FOR DEPRESSION hydrochlorothiazide 25 mg tablet See Rx Instructions .ROUTE .COMPLEX Qty: 90 0RF Dose Instruction: TAKE 1 TABLET BY MOUTH ONCE DAILY FOR FLUID FOR BLOOD PRESSURE Rx Instructions: TAKE 1 TABLET BY MOUTH ONCE DAILY FOR FLUID FOR BLOOD PRESSURE ibuprofen 800 mg tablet See Rx Instructions .ROUTE .COMPLEX Qty: 90 0RF Dose Instruction: TAKE 1 TABLET BY MOUTH THREE TIMES DAILY NEEDED FOR PAIN Rx Instructions: TAKE 1 TABLET BY MOUTH THREE TIMES DAILY NEEDED FOR PAIN lisinopril 20 mg tablet See Rx Instructions .ROUTE .COMPLEX Qty: 90 0RF Dose Instruction: Take 1 tablet by mouth once daily for blood pressure Rx Instructions: Take 1 tablet by mouth once daily for blood pressure metformin 500 mg tablet extended release 24 hr See Rx Instructions .ROUTE .COMPLEX Qty: 90 3RF Dose Instruction: Take 1 tablet by mouth once daily Rx Instructions: Take 1 tablet by mouth once daily prednisone 50 mg tablet 50 mg PO DAILY 7 Days Qty: 7 0RF ondansetron 4 mg tablet,disintegrating 4 mg PO Q8H PRN (Reason: nausea and vomiting) 4 Days Qty: 12 0RF Referrals Follow up/Referrals: Troy Ag APRN [Primary Care Provider] - See instructions Clinical Impressions Clinical Impression: Pancolitis, Large bowel obstruction Instructions Patient Instructions: DI for Acute Abdominal Pain Discharge ED Provider: Finesse Arevalo General Adult [facility] General Chief complaint: Abdominal Pain Stated complaint: abd pain, vomiting Time Seen by Provider: 04/01/23 15:23 Mode of Arrival: Ambulatory Source of Information: Patient Limitations: No Limitations Description of Symptoms (Recalled from ER Triage Doc. by RN): pt was seen here last week and dx with colitis and today she states has gotten worse and has left and right lower quad pain with nausea and vomiting (yellow in color) and states she has not had any BMs History of Present Illness HPI narrative: 62-year-old female history of hypertension, hyperlipidemia, diabetes, diverticulitis, cholecystectomy and hysterectomy presenting with abdominal pain. Patient has been seen twice in the past week and a half for similar abdominal pain. Diagnosed with colitis. She states that it got acutely worse 1 day prior to arrival. Patient has not been able to tolerate p.o. intake in over 36 hours. Is not passing gas, last bowel movement was small, softer than usual, no blood. Vomit initially started 1 day prior to arrival, was yellow and frothy, is now dark and foul-smelling. Patient states that her abdominal pain is bilateral lower quadrants radiates to her left flank. Is moderate to severe in intensity made worse with vomiting. No fevers or chills, urinary symptoms, cough, chest pain, shortness of breath, rash, or any other concerns. Related Data Previous Rx's Medication Instructions Recorded ergocalciferol (vitamin D2) 1,250 See Rx Instructions .Route 04/05/21 mcg (50,000 unit) capsule .COMPLEX #6 caps citalopram 20 mg tablet See Rx Instructions .Route 12/12/21 .COMPLEX #90 tabs clobetasol 0.05 % topical cream 1 applic topical DAILY #30 grams 04/03/22 estra
--- NOTE | 2023-04-01 15:58 | CT_ITS ---
PROCEDURE INFORMATION: Exam: CTA Abdomen and Pelvis With Contrast Exam date and time: 04/01/2023 4:34 PM Age: 62 years old Clinical indication: Abdominal pain; Generalized; Additional info: Concern for sbo/mes ischemia/ vs diverticulitis TECHNIQUE: Imaging protocol: Computed tomographic angiography of the abdomen and pelvis with contrast. Exam focused on the arteries. 3D rendering (Not supervised by radiologist): MIP and/or 3D reconstructed images were created by the technologist. Radiation optimization: All CT scans at this facility use at least one of these dose optimization techniques: automated exposure control; mA and/or kV adjustment per patient size (includes targeted exams where dose is matched to clinical indication); or iterative reconstruction. Contrast material: ISO 370; Contrast volume: 100 ml; Contrast route: INTRAVENOUS (IV); REPORTING DATA: Count of CT and Cardiac NM exams in prior 12 months: This patient has received [address] and 0 known cardiac nuclear medicine studies in the 12 months prior to the current study. COMPARISON: CT ABDOMEN PELVIS W CON 03/26/2023 5:58 PM FINDINGS: Lungs: Calcified nodule of the peripheral right lower lobe compatible with granuloma. Diaphragm: There is a moderate hiatal hernia. Aorta: There is atherosclerotic disease of the visualized aorta and its major branch vessels. Celiac trunk and mesenteric arteries: No occlusion or significant stenosis. Renal arteries: No occlusion or significant stenosis. Right iliac arteries: No occlusion or significant stenosis. Left iliac arteries: No occlusion or significant stenosis. Liver: There is early morphologic changes of cirrhosis with volume redistribution. No concerning focal liver lesion. Gallbladder and bile ducts: The patient is status post cholecystectomy. Pancreas: Unremarkable. No mass. No ductal dilation. Spleen: Unremarkable. No splenomegaly. Adrenal glands: Unremarkable. No mass. Kidneys and ureters: Unremarkable. No solid mass. No hydronephrosis. Stomach and bowel: Interval progression of wall thickening and mucosal hyperenhancement involving the colon which now extends from the cecum to the sigmoid with extensive pericolonic fluid which is also new from prior. There is a duodenal diverticulum. There is no significant fluid distention of the cecum which measures up to 10.7 cm. Appendix: No evidence of appendicitis. Intraperitoneal space: Unremarkable. No free air. No significant fluid collection. Lymph nodes: Unremarkable. No enlarged lymph nodes. Urinary bladder: Unremarkable. No mass. Reproductive: Unremarkable as visualized. Bones/joints: Prior bilateral total hip arthroplasty with associated streak artifact that obscures evaluation of the pelvis. There is diffuse degenerative disease of the visualized osseous structures. Soft tissues: Unremarkable. IMPRESSION: 1. Interval progression of the inflammatory change which now involves the entirety of the colon with pericolonic fluid. New significant fluid distention of the cecum measuring up to 10.7 cm. No evidence for mesenteric arterial occlusion. 2. Bilateral hip arthroplasties with streak artifact that limits evaluation of the pelvis.
[2023-04-01 16:10] LABS: Alanine Aminotransferase 39 U/L (12-78); Albumin Level 4.8 g/dl (3.5-5.0); Albumin/Globulin Ratio 1.1 (1.1-1.8); Alkaline Phosphatase 99 U/L (38-126); Anion Gap 20.3 mEq/L (5-15); Aspartate Amino Transferase 38 U/L (14-36); Bilirubin,Total 1.7 mg/dl (0.2-1.3); Blood Urea Nitrogen 24 mg/dl (7-17); Calcium 10.8 mg/dl (8.4-10.2); Carbon Dioxide 20 mmol/L (22.0-30.0); Chloride 97 mmol/L (98-107); Creatinine Clearance Estimated 60 mL/min (50-200); Estimated Glomerular Filt Rate 50 ml/min (>60); GFR (African American) 61 ML/MIN (>60); Globulin 4.3 g/dL (1.3-3.2); Glucose 181 mg/dl (74-100); Lipase 40 U/L (23-300); Potassium 4.3 mmoL/L (3.5-5.1); Sodium 133 mmol/L (136-145); Total Protein,Serum 9.1 g/dl (6.3-8.2)
[2023-04-01 16:19] LABS: Lactic Acid 2.5 mmol/L (0.7-2.1)
[2023-04-01 16:41] LABS: Basophils # 0.1 K/mm3 (0-0.2); Basophils % 0.3 % (0.1-2.0); Eosinophils # 0.1 K/mm3 (0.0-0.4); Eosinophils % 0.2 % (0.1-12.0); Hematocrit 51.8 % (37.0-47.0); Hemoglobin 16.7 g/dL (12.2-16.2); Lymphocytes % 13.6 % (10-50); Mean Corpuscular HGB Conc 32.3 g/dL (31.8-35.4); Mean Corpuscular Hemoglobin 27.3 pg (27.0-31.2); Mean Corpuscular Volume 84.8 fl (81-99); Mean Platelet Volume 8.3 fl (7.4-10.4); Monocytes # 1.2 K/mm3 (0.1-1.0); Monocytes % 5.4 % (1.7-9.3); Neutrophils # 17.7 K/mm3 (1.8-7.8); Neutrophils % 80.4 % (37.0-80.0); Platelet Count 686 K/mm3 (142-424); Red Blood Count 6.11 M/mm3 (4.20-5.40); Red Cell Distribution Width 14.2 % (11.5-17.5)
[2023-04-01 16:42] LABS: MANUAL DIFFERENTIAL MANUAL DIFFERENTIAL (MANUAL DIFF)
[2023-04-01 17:03] LABS: Lymphocytes % 21 % (10-50); Monocytes % 3 % (2-9); Neutrophils % 76 % (42-76); Platelet Estimate Moderate Increase; RBC Morphology Normal; Total Cells Counted 100
--- NOTE | 2023-04-01 17:28 | PC.NURSE ---
Placed call to [facility] per Dr Arevalo request
--- NOTE | 2023-04-01 17:34 | PC.NURSE ---
Dr Arevalo speaking with martin
--- NOTE | 2023-04-01 17:45 | PC.NURSE ---
Dr. Arevalo speaking with Dr. Ovalle
--- NOTE | 2023-04-01 18:00 | PC.NURSE ---
placed call to [facility] for transfer
--- NOTE | 2023-04-01 18:15 | PC.NURSE ---
Dr Arevalo speaking with Dr Wheeler at [facility]
--- NOTE | 2023-04-01 18:27 | PC.NURSE ---
placed call to [facility] for transfer, they will call back
--- NOTE | 2023-04-01 18:31 | PC.NURSE ---
Dr Arevalo speaking with [facility] surgery at [facility]
--- NOTE | 2023-04-01 19:15 | PC.NURSE ---
ED doctor on phone with [facility]
--- NOTE | 2023-04-01 19:23 | PC.NURSE ---
face sheet faxed
[2023-04-01 19:59] LABS: Reflex Lactic Add Lactic Reflex
--- NOTE | 2023-04-01 20:11 | PC.NURSE ---
Spoke to Tosha at [facility] regarding bed placement, research kennel supervisor is aware and trying to get ICU bed placement, they will call as soon as a bed is available.
[2023-04-01 20:14] LABS: Microscopic, Urine URINE MICROSCOPIC (MICROSCOPIC)
[2023-04-01 20:23] LABS: Appearance,Urine CLEAR (Clear); Bilirubin,Urine Negative (Negative); Blood, Urine Negative (Negative); Color,Urine YELLOW (Yellow); Glucose,Urine (UA) Negative (Negative); Ketones,Urine Negative (Negative); Leukocyte Esterase,Urine Negative (Negative); Nitrate,Urine Negative (Negative); PH,Urine 7.5 (5.0-8.5); Protein,Urine Negative (Negative)
--- NOTE | 2023-04-01 20:32 | PC.NURSE ---
ER nurse verified with ER MD that patient does not require an ICU bed. QUALITY ASSURANCE ASSESSOR called [facility] transfer center back and let them know patient does not require an ICU bed. transfer center stated that they could not change the bed request status and that it would need to be a doctor to doctor conversation and there MD Hospitalist has to change the request. QUALITY ASSURANCE ASSESSOR requested be paged again to speak with ER MD Arevalo to confirm bed status and transfer detaills. ER MD and unit staff made aware to be expecting phone call
[2023-04-01 20:46] LABS: Lactic Acid Follow Up (RFLX 1) 1.2 mmol/L (0.7-2.1)
--- NOTE | 2023-04-01 20:55 | PC.NURSE ---
called report to Sonali FINCH at [facility] on 4 IC
--- NOTE | 2023-04-01 21:00 | PC.NURSE ---
EMS notified of need for transport
[2023-04-01 21:18] LABS: Bacteria,Urine Trace /lpf
--- NOTE | 2023-04-01 21:41 | PC.NURSE ---
Face sheet faxed to Tosha khanna [facility].
--- NOTE | 2023-04-01 21:51 | PC.NURSE ---
EMS on scene to transport patient. report given to ems
== END 2023-04-01 22:03 | disposition short-term general hospital (02) ==
PROVIDERS: Emergency Provider Emergency Medicine; PCP Nurse Practitioner Family
DX: K56.609 Unspecified intestinal obstruction, unspecified as to partial versus complete obstruction (principal); K52.9 Noninfective gastroenteritis and colitis, unspecified; I10 Essential (primary) hypertension; E78.5 Hyperlipidemia, unspecified; E11.9 Type 2 diabetes mellitus without complications; F17.210 Nicotine dependence, cigarettes, uncomplicated
CPT/HCPCS: 36415; 74174; 80053; 81001; 83605; 83690; 85007; 85025; 87040; 96361; 96365; 96375; 99291; J0131; J2405; J2543; Q9967

== ENCOUNTER 2024-11-16 16:50 | Outpatient (CLI) | payer BC, SELFPAY ==
--- NOTE | 2024-11-16 17:02 | XR_ITS ---
FINAL REPORT CLINICAL HISTORY: hip pain COMPARISON: None FINDINGS: An AP view of the pelvis and a frog leg view of the left hip were obtained. There is no acute fracture or dislocation. Bilateral hip arthroplasties are noted, with intact hardware. No evidence of hardware complication is identified. Remaining osseous pelvis is without acute abnormality. No fracture is identified. Soft tissues are unremarkable. IMPRESSION: Bilateral hip arthroplasties, without evidence of hardware complication identified. No acute osseous abnormality of the left hip. Reviewed, Interpreted and Dictated by Jodi Neely MD Transcribed by Gail Dickinson Authenticated and [facility]
== END 2024-11-16 23:59 | disposition home or self-care (01) ==
LOC: RAD 16:51
PROVIDERS: PCP Nurse Practitioner Family; Visit Provider Nurse Practitioner
DX: Z96.642 Presence of left artificial hip joint; M25.552 Pain in left hip
CPT/HCPCS: 73502

== ENCOUNTER 2024-11-21 16:45 | Outpatient (CLI) | payer BC, SELFPAY ==
--- OUTSIDE RECORDS SUMMARY | 2024-11-21 16:47 | XMS_ITS | Continuity of Care Document ---
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 On 04/02/2023 she had exploration, sigmoid colectomy, end colostomy creation and small bowel resection for the fistula. She has developed stoma stenosis and underwent ostomy reconstruction and colonoscopy 12/02/23. On exam she has regular rate and rhythm, normal work of breathing, abdomen soft, midline incision well-healed, left side colostomy with semisolid output and vaguely palpable at least moderate ventral parastomal hernia She is here today to inquire about any options for the parastomal hernia. We discussed that an abdominal binder with cut out for the stomal device is available either online or we could have her check in with the ostomy nursing team to see if they have a device that is recommended. Otherwise at the time of eventual colostomy reversal the parastomal hernia site would be closed primarily. She is not quite ready for stomal reversal as she is still quite busy with work and this needs to be uninterrupted. She is also still smoking about 1/2 pack of cigarettes daily. We will plan to use a hernia support device such as an abdominal binder and plan for eventual colostomy reversal and closure of parastomal hernia when the time is suitable. Not available 11/09/2024 15:49:40 Plan of Treatment Reminders Order Date Submit Date Provider Last Modified By Organization Details Last Modified Time Details Appointments None record ed. Lab None record ed. Referral None record ed. Procedures None record ed. Surgeries None record ed. Imaging None record ed. Medication Orders None record ed. Patient TargetsNo targets recorded. Patient InstructionsNo instructions recorded. Reason for Referral None Reported. Procedures Surgical History Date Name Laterality Status Provider Name and Address Organization Details Recorded Time total replacement of hip completed Laurie Angela [facility] 04/15/2023 09:33:39 Total hysterectomy completed Sylvester figueroa [facility] 04/15/2023 09:33:48 Cholecystectomy completed Laurie [facility] 04/15/2023 09:34:04 procedure on colon completed Andriaalexus Gonzáles [facility] 06/03/2023 13:13:49 Imaging Results None recorded. Procedure Notes None recorded. Medical Equipment None Reported. Allergies No known drug allergies Medications Name Sig Start Date Stop Date Status Note LastModified by Organization Details LastModified Time metformin 500 mg tablet Take 1 tablet every day by oral route. active Not Available Not Available No t Available Augmentin 875 mg-125 mg tablet Take 1 tablet every 12 hours by oral route for 5 days. 01/07 completed Not Available Not Available Not Available citalopram 40 mg tablet Take 1 tablet every day by oral route as directed . active Not Available Not Available No t Available lisinopril 20 mg tablet Take 1 tablet every day by oral route. active Not Available Not Available No t Available hydrochlor othiazide 25 mg tablet Take 1 tablet every day by oral route. active Not Available Not Available No t Available iron 11/09 completed Not Available Not Available Not Available Vitamin D3 11/09 completed Not Available Not Available Not Available Suprep Bowel Prep Kit 17.5 gram-3.13 gram-1.6 gram oral solution To be used day before procedur e 12/01 completed Not Available Not Available Not Available Eliquis 5 mg tablet Take 1 tablet twice a day by oral route. 12/01 completed not taking Not Available Not Available Not Available Plenvu 140 gram-9 gram-5.2 gram powder packs Take as directed . HOUSTON COLVIN IVA: [id number] PCN: [id number] GROUP: [id number] ID: [id number] 11/19 completed Not Available Not Available Not Available Vitals Date Recorded Body height Body mass index (BMI) Body weight Heart rate Systolic blood pressure Diastolic blood pressure Provider Name and Address Organization Details Last Updated DateTime 5 162.56 cm 28.5 kg/m2 15457.3 3 g 73 /min 113 mm[Hg] 68 mm[Hg] Laurie Miller [facility] 5 14:43:18 Social History Question Answer Notes LastModified by Organizat ion Details LastModified Time Tobacco Smoking Status Current Every Day Smoker Laurie Miller [facility] 04/15/2023 09:32:57 What Was The Date Of Your Most Recent Tobacco Screening? 06/03/2023 Information not available 06/03/2023 What Is Your Current Pack Years? 30ormorepack years Information not available 04/15/2023 How Much Tobacco Do You Smoke? 1 PPD Information not available 06/03/2023 Has Tobacco Cessation Counseling Been Provided? Yes Information not available 04/15/2023 On What Date Was Tobacco Cessation Counseling Provided? 06/03/2023 Information not available 06/03/2023 How Many Years Have You Smoked Tobacco? 45 Information not available 04/15/2023 Sex: Female Functional Status Question Answer Note LastModified by Organizat ion Details LastModified Time Do you use any illicit or recreational drugs? Yes Marijuana Information not available 04/15/2023 What is your level of alcohol consumption? Occasional Information not available 04/15/2023 Are you currently employed? Yes Information not available 04/15/2023 What is your occupation? [employer] Information not available 04/15/2023 Mental Status None recorded. Family History Relationship Description Onset Age of this Age Resolved Age Notes LastModified by Organization Details LastModified Time Father Heart disease Not available 2022 09:29:19 Father Diabetes mellitus Not available 2022 09:29:32 Father Myocardial infarction 65 Not available 04/15 09:29:57 Father Aortic aneurysm Not available 2022 09:31:13 Mother Diabetes mellitus Not available 2022 09:29:32 Mother Multiple organ failure 90 Not available 2022 09:30:32 Maternal Uncle Malignant tumor of colon Not available 2022 09:29:42 Medical History Condition Response Coronary Artery Disease N Thyroid Disease Y COPD N Stroke N Crohn's Disease N Liver Disease N Kidney Disease N Gallbladder Disease Y Colon Polyps Y Heart Attack ([place]) N Diabetes Y Congestive Heart Failure (CHF) N Diverticulitis Y Asthma N Heart Disease N Hypertension Y Gynecological HistoryNo gynecological history recorded. Obstetrics History GPAL:G 0 P 0 0 0 0 Past Encounters Encounter ID Performer Location Encounter Start Date Encounter Closed Date Diagnosis/Indication Diagnosis SNOMED-CT Code Diagnosis ICD10 Code Diagnosis Note [id number] LORA BRITO MD GENERAL SURGERY [address] [place] [address] 11/09/2024 14:34:51 11/11/2024 14:38:25 Parastomal hernia 793507478 K43.5 Health Concerns Section Related Observation LastModified by Organization Detai ls LastModified Time None Recorded Concern Status LastModified by Organization Details LastModified Time None Recorded Payers Encounter Date Sequence Insurance Name Policy Number Policy Smith Covered Member ID Smith Member ID Guarantor Name 11/09/2024 1 [place] [id number] K Nicky Hollingsworth [id number] Nicky Hollingsworth OBGyn Episode No OBEpisode recorded.
--- OUTSIDE RECORDS SUMMARY | 2024-11-21 16:48 | XMS_ITS | Data Portability ---
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 On 04/02/2023 she had exploration, sigmoid colectomy, end colostomy creation and small bowel resection for the fistula. No significant changes. She has been tolerating diet. She notes her ostomy output is a bit thickened. She still desires ostomy reversal. She had attempt at colonoscopy last week however it was not able to be performed due to stenotic ostomy opening. On exam she has regular rate and rhythm, normal work of breathing, abdomen soft, colostomy site healthy but stenotic able to be dilated to about 8 mm Will plan for a trip to the operating room for local ostomy revision and scar excision along with colonoscopy. Discussed the procedure, risks. Likely would be an outpatient procedure. 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 On 04/02/2023 she had exploration, sigmoid colectomy, end colostomy creation and small bowel resection for the fistula. She developed a stoma stenosis. She was taken for revision of the scar, skin level colostomy reconstruction and colonoscopy on November 23. This was uneventful. Her colonoscopy was unremarkable. Seems she has had some separation of the mucocutaneous junction and retraction of the colostomy. It is tender but she is eating and having reliable colostomy output. I don't think attempt at reconstruction of the colostomy at this point would be beneficial as the tissues are quite inflamed and friable. Would allow at least another week or two for healing and we can plan to reevaluate. As long as colostomy is functioning we will treat conservatively. 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 On 04/02/2023 she had exploration, sigmoid colectomy, end colostomy creation and small bowel resection for the fistula. She has developed stoma stenosis and underwent ostomy reconstruction and colonoscopy 12/01. Now doing well, tolerating diet moving her bowels normally. She has no further pain around the colostomy site. She is smoking still a bit less than 1 pack of cigarettes daily. She is a reasonable candidate for reversal. She has now had colonoscopy and CT with barium enema since procedure. She states that is not a great time with work to proceed quite yet and will need to have complete smoking cessation. Contact information was given. She will contact us for reevaluation in the office about 4 to 6 weeks from time of desired colostomy reversal and once smoking cessation has been achieved. Not available 01/08/2024 12:28:29 11/09/2024 11/09/2024 63-year-old female who had stricture [...] instructions recorded. Reason for Referral None Reported. Results Created Date Observation Date Name Description Value Unit Range Abnormal Flag Note LastModifiedBy Organization Detail LastModifiedTime Result Notes None recorded. Procedures Surgical History Date Name Laterality Status Provider Name and Address Organization Details Recorded Time total replacement of hip completed Laurie [facility] 04/15/2023 09:33:39 Total hysterectomy completed Sylvester figueroa [facility] 04/15/2023 09:33:48 Cholecystectomy completed Laurie [facility] 04/15/2023 09:34:04 procedure on colon completed Rober Gonzáles [facility] 06/03/2023 13:13:49 Imaging Results None recorded. Procedure [...] powder packs Take as directed . HOUSTON ENRIQUE: [id number] PCN: CNRX GROUP: [id number] ID: [id number] 11/19 completed Not Available Not Available Not Available Vitals Date Recorded Body height Body mass index (BMI) Body weight Heart rate Systolic blood pressure Diastolic blood pressure Provider Name and Address Organization Details Last Updated DateTime 162.56 cm 30 kg/m2 25997.6 6 g 66 /min 134 mm[Hg] 74 mm[Hg] Chasity Steinberg [facility] 4 09:45:00 Date Recorded Body height Body mass index (BMI) Body weight Heart rate Systolic blood pressure Diastolic blood pressure Provider Name and Address Organization Details Last Updated DateTime 4 162.56 cm 29.9 kg/m2 16468.0 7 g 67 /min 122 mm[Hg] 68 mm[Hg] [facility] 4 10:48:55 Date Recorded Body height Body mass index (BMI) Body weight Provider Name and Address Organization Details Last Updated DateTime 01/08/2024 162.56 cm 30.4 kg/m2 10041.85 g [facility] 01/08/2024 11:21:16 Date Recorded Body height Body mass index (BMI) Body weight Heart rate Systolic blood pressure Diastolic blood pressure Provider Name and Address Organization Details Last Updated DateTime 5 162.56 cm 28.5 kg/m2 05032.3 3 g 73 /min 113 mm[Hg] 68 mm[Hg] Laurie Miller [facility] 14:43:18 Social History Question Answer Notes LastModified by Organizat ion Details LastModified Time Tobacco Smoking Status Current Every Day Smoker Laurie Miller [facility] 04/15/2023 09:32:57 What Was The Date Of [...] History Condition Response Coronary Artery Disease N COPD N Stroke N Crohn's Disease N Kidney Disease N Gallbladder Disease Y Asthma N Thyroid Disease Y Liver Disease N Colon Polyps Y Heart Attack ([place]) N Diabetes Y Congestive Heart Failure (CHF) N Diverticulitis Y Heart Disease N Hypertension Y Gynecological HistoryNo gynecological history recorded. Obstetrics History GPAL:G 0 P 0 0 0 0 Past Encounters Encounter ID Performer Location Encounter Start Date Encounter Closed Date Diagnosis/Indication Diagnosis SNOMED-CT Code Diagnosis ICD10 Code Diagnosis Note [id number] LORA BRITO MD GENERAL SURGERY [address] 04/15/2023 09:14:48 04/16/2023 04:30:52 Diverticulitis of sigmoid colon 282475218 K57.32 [id number] LORA BRITO MD GENERAL SURGERY [place] [address] 1 05/20/2023 14:35:12 05/22/2023 13:12:50 Diverticulitis of sigmoid colon 753115723 K57.32 [id number] JOHNNY FREEDMAN PA-C CARDIOLOG Y [address] ,[address] [place] [address] 5 06/03/2023 12:39:15 06/03/2023 14:20:12 Atrial fibrillation 87616818 I48.91 NSR today.Orde r 7 day Holter to assess for any recurrence of atrial fibrillati on (paroxysma l).Continu e Eliquis 5 mg BID. Essential hypertension 14508580 I10 BP 108/70 mmHg - Controlled Continue HCTZ 25 mg daily, Lisinopril 20 mg daily. Type 2 afsaneh betes mellitus without complication 071181964 E11.9 HGBA1C 5.9%. done by PCP in 03/2023 - per patient. [id number] PATRICK TRUJILLO MD [facility] [address] [place],[address] [place], [place] [address] 06/08/2023 10:26:01 06/08/2023 10:26:18 [id number] LORA BRITO MD GENERAL SURGERY [place] [address] 1 07/22/2023 13:17:41 07/24/2023 10:31:10 [id number] LORA BRITO MD GENERAL SURGERY [address] [address] 09/16/2023 14:30:03 09/21/2023 08:22:55 Stricture of colon 2905025 K56.690 [id number] EVERARDO JAIMES MD SURGERY SCHEDULE [address] [place] [address] 11/11/2023 09:24:52 11/11/2023 09:27:21 [id number] LORA BRITO MD GENERAL SURGERY [place] [address] [place] [address] 11/20/2023 09:36:50 11/24/2023 12:04:42 Colostomy present 461431164 Z93.3 [id number] LORA BRITO MD GENERAL SURGERY [address] [address] 12/02/2023 10:40:21 12/03/2023 11:37:20 Colostomy present 868519338 Z93.3 [id number] LORA BRITO MD GENER[facility] SURGERY [place] [address] [place] [address] 01/08/2024 11:17:14 01/09/2024 04:06:05 Colostomy present 981364313 Z93.3 [id number] LORA BRITO MD GENERAL SURGERY [address] [address] 11/09/2024 14:34:51 11/11/2024 14:38:25 Parastomal hernia 160606157 K43.5 Health Concerns Section Related Observation LastModified by Organization Detai ls LastModified Time None Recorded Concern Status LastModified by Organization Details LastModified Time None Recorded Advance Directives Directive None Recorded Payers Insurance Date Sequence Insurance Name Policy Number Policy Smith Covered Member ID Smith Member ID Guarantor Name 11/11/2024 1 [place] [id number] K Nicky Hollingsworth [id number] Nicky Hollingsworth OBGyn Episode No OBEpisode recorded.
--- NOTE | 2024-11-21 16:50 | XR_ITS ---
PROCEDURE INFORMATION: Exam: XR Lumbosacral Spine Exam date and time: 11/21/2024 4:51 PM Age: 64 years old Clinical indication: Pain; Lumbago with sciatica; Left; Additional info: Left side low back pain TECHNIQUE: Imaging protocol: Radiologic exam of the lumbosacral spine. Views: 2 or 3 views. COMPARISON: CR XR HIP LT 2-3V W/PELVIS 11/16/2024 5:04 PM FINDINGS: Bones/joints: Degenerative disc disease with multilevel vacuum disc phenomena and disc space narrowing this is most prominent at L4-L5 and L5-S1. Hypertrophic changes of the facets are present. Marginal osteophytes are noted. Soft tissues: Unremarkable. IMPRESSION: Moderately severe degenerative disc disease most prominent at L4-L5 and L5-S1.
== END 2024-11-21 23:59 | disposition home or self-care (01) ==
LOC: RAD 16:46
PROVIDERS: PCP Nurse Practitioner Family; Visit Provider Nurse Practitioner Family
DX: M51.379 Other intervertebral disc degeneration, lumbosacral region without mention of lumbar back pain or lower extremity pain (principal); M54.42 Lumbago with sciatica, left side
CPT/HCPCS: 72100

== ENCOUNTER 2024-12-01 07:49 | Outpatient (CLI) | payer BC, SELFPAY ==
--- OUTSIDE RECORDS SUMMARY | 2024-12-01 07:52 | XMS_ITS | Data Portability ---
Author Organization [facility] Address [address] [place] [address] Care Team Providers Care It Program Auditor Name Role Phone SIRI MELGOZA Primary Care [...] Time total replacement of hip completed Laurie [facility] 04/15/2023 09:33:39 Total hysterectomy completed Sylvester figueroa [facility] 04/15/2023 09:33:48 Cholecystectomy completed Laurie [facility] 04/15/2023 09:34:04 procedure on colon completed Rober Gonzáles [facility] 06/03/2023 13:13:49 Imaging Results None recorded. Procedure [...] packs Take as directed . HOUSTON ENRIQUE: [id number] PCN: CNRX GROUP: [id number] ID: [id number] 11/19 completed Not Available Not Available Not Available Vitals Date Recorded Body height Body mass index (BMI) Body weight Heart rate Systolic blood pressure Diastolic blood pressure Provider Name and Address Organization Details Last Updated DateTime 162.56 cm 30 kg/m2 92128.6 6 g 66 /min 134 mm[Hg] 74 mm[Hg] Chasity Steinberg [facility] 4 09:45:00 Date Recorded Body height Body mass index (BMI) Body weight Heart rate Systolic blood pressure Diastolic blood pressure Provider Name and Address Organization Details Last Updated DateTime 4 162.56 cm 29.9 kg/m2 04111.0 7 g 67 /min 122 mm[Hg] 68 mm[Hg] [facility] 4 10:48:55 Date Recorded Body height Body mass index (BMI) Body weight Provider Name and Address Organization Details Last Updated DateTime 01/08/2024 162.56 cm 30.4 kg/m2 41175.85 g [facility] 01/08/2024 11:21:16 Date Recorded Body height Body mass index (BMI) Body weight Heart rate Systolic blood pressure Diastolic blood pressure Provider Name and Address Organization Details Last Updated DateTime 5 162.56 cm 28.5 kg/m2 14054.3 3 g 73 /min 113 mm[Hg] 68 mm[Hg] Laurie Miller [facility] 14:43:18 Social History Question Answer Notes LastModified [...] available 2022 09:29:42 Medical History Condition Response Diabetes Y Coronary Artery Disease N Thyroid Disease Y Congestive Heart Failure (CHF) N Gallbladder Disease Y Diverticulitis Y Stroke N COPD N Asthma N Crohn's Disease N Colon Polyps Y Liver Disease N Heart Attack ([place]) N Heart Disease N Hypertension Y Kidney Disease N Gynecological HistoryNo gynecological history recorded. Obstetrics History GPAL:G 0 P 0 0 0 0 Past Encounters Encounter ID Performer Location Encounter Start Date Encounter Closed Date Diagnosis/Indication Diagnosis SNOMED-CT Code Diagnosis ICD10 Code Diagnosis Note [id number] LORA BRITO MD GENERAL SURGERY [address] 1 04/15/2023 09:14:48 04/16/2023 04:30:52 Diverticulitis of sigmoid colon 679175335 K57.32 [id number] LORA BRITO MD GENERAL SURGERY [place] [address] 05/20/2023 14:35:12 05/22/2023 13:12:50 Diverticulitis of sigmoid colon 151701569 K57.32 [id number] JOHNNY FREEDMAN PA-C CARDIOLOG Y [address] ,[address] [place] [address] 5 06/03/2023 12:39:15 06/03/2023 14:20:12 Atrial fibrillation 33970815 I48.91 NSR today.Orde r 7 day Holter to assess for any recurrence of atrial fibrillati on (paroxysma l).Continu e Eliquis 5 mg BID. Essential hypertension 94104724 I10 BP 108/70 mmHg - Controlled Continue HCTZ 25 mg daily, Lisinopril 20 mg daily. Type 2 afsaneh betes mellitus without complication 028743668 E11.9 HGBA1C 5.9%. done by PCP in 03/2023 - per patient. [id number] PATRICK TRUJILLO MD [facility] [address] [place],[address] [place], [place] [address] 06/08/2023 10:26:01 06/08/2023 10:26:18 [id number] LORA BRITO MD GENERAL SURGERY [place] [address] 07/22/2023 13:17:41 07/24/2023 10:31:10 [id number] LORA BRITO MD GENERAL SURGERY [address] [address] 09/16/2023 14:30:03 09/21/2023 08:22:55 Stricture of colon 1723677 K56.690 [id number] EVERARDO JAIMES MD SURGERY SCHEDULE [address] [place] [address] 11/11/2023 09:24:52 11/11/2023 09:27:21 [id number] LORA BRITO MD GENERAL SURGERY [address] [place] [address] 11/20/2023 09:36:50 11/24/2023 12:04:42 Colostomy present 558470009 Z93.3 [id number] LORA BRITO MD GENERAL SURGERY [address] [address] 12/02/2023 10:40:21 12/03/2023 11:37:20 Colostomy present 707363093 Z93.3 [id number] LORA BRITO MD [facility] SUR[facility]ERY [place] [address] [place] [id number] 01/08/2024 11:17:14 01/09/2024 04:06:05 Colostomy present 725683630 Z93.3 [id number] LORA BRITO MD GENERAL SURGERY [address] [address] 11/09/2024 14:34:51 11/11/2024 14:38:25 Parastomal hernia 801932900 K43.5 Health Concerns Section Related Observation LastModified by Organization Detai ls LastModified Time None Recorded Concern Status LastModified by Organization Details LastModified Time None Recorded Advance Directives Directive None Recorded Payers Insurance Date Sequence Insurance Name Policy Number Policy Smith Covered Member ID Smith Member ID Guarantor Name 11/11/2024 1 [place] [id number] K Nicky Hollingsworth [id number] Nicky Hollingsworth OBGyn Episode No OBEpisode recorded.
--- OUTSIDE RECORDS SUMMARY | 2024-12-01 07:52 | XMS_ITS | Continuity of Care Document ---
Author Organization [facility] Address [address] [place] [address] Care Team Providers Care Electric Motor Fitter Name Role Phone SIRI MELGOZA Primary Care [...] total replacement of hip completed Laurie Angela [facility] 04/15/2023 09:33:39 Total hysterectomy completed Sylvester figueroa [facility] 04/15/2023 09:33:48 Cholecystectomy completed Laurie [facility] 04/15/2023 09:34:04 procedure on colon completed Andriaalexus Gonzáles [facility] 06/03/2023 13:13:49 Imaging Results None recorded. [...] Take as directed . [place] COLVIN IVA: [id number] PCN: [id number] GROUP: [id number] ID: [id number] 11/19 completed Not Available Not Available Not Available Vitals Date Recorded Body height Body mass index (BMI) Body weight Heart rate Systolic blood pressure Diastolic blood pressure Provider Name and Address Organization Details Last Updated DateTime 5 162.56 cm 28.5 kg/m2 83312.3 3 g 73 /min 113 mm[Hg] 68 mm[Hg] Laurie Miller [facility] 5 14:43:18 Social History Question Answer Notes LastModified by Organizat ion Details LastModified Time Tobacco Smoking Status Current Every Day Smoker Laurie Miller [facility] 04/15/2023 09:32:57 What Was The Date Of [...] Disease N Colon Polyps Y Heart Attack ([place]) N Diabetes Y Congestive Heart Failure (CHF) N Diverticulitis Y Heart Disease N Hypertension Y Gynecological HistoryNo gynecological history recorded. Obstetrics History GPAL:G 0 P 0 0 0 0 Past Encounters Encounter ID Performer Location Encounter Start Date Encounter Closed Date Diagnosis/Indication Diagnosis SNOMED-CT Code Diagnosis ICD10 Code Diagnosis Note [id number] LORA BRITO MD [facility] [address] [place] [address] 11/09/2024 14:34:51 11/11/2024 14:38:25 Parastomal hernia 153771479 K43.5 Health Concerns Section Related Observation LastModified by Organization Detai ls LastModified Time None Recorded Concern Status LastModified by Organization Details LastModified Time None Recorded Payers Encounter Date Sequence Insurance Name Policy Number Policy Smith Covered Member ID Smith Member ID Guarantor Name 11/09/2024 1 [place] [id number] K Nicky Hollingsworth [id number] Nicky Hollingsworth OBGyn Episode No OBEpisode recorded.
--- NOTE | 2024-12-01 07:57 | MR_ITS ---
FINAL REPORT TECHNIQUE: Multiplanar MR without contrast CLINICAL HISTORY: LBP W LT SIDE SCIATICA FINDINGS: Sagittal images show normal vertebral height. Alignment is normal. There are discogenic endplate signal changes at L4-5 and L5-S1. T12-L1: Unremarkable. L1-2: Mild annular disc bulge without canal stenosis. L2-3: Moderate annular disc bulge with borderline central canal stenosis. L3-4: Moderate annular disc bulge and moderate facet overgrowth. Moderate central canal stenosis and mild bilateral neuroforaminal narrowing. L4-5: Large annular disc bulge and advanced facet arthropathy. Asymmetric thickening of the ligamentum flavum to the left. Severe central canal stenosis and moderate neuroforaminal narrowing. L5-S1: Moderate annular disc bulge and advanced facet arthropathy. Mild central canal stenosis and moderate neuroforaminal narrowing. IMPRESSION: Advanced degenerative changes with canal stenosis and neuroforaminal narrowing, most pronounced in the lower lumbar spine. Reviewed, Interpreted and Dictated by Lang Castro MD Transcribed by Elba Bass Authenticated and [facility]
== END 2024-12-01 23:59 | disposition home or self-care (01) ==
LOC: RAD 07:50
PROVIDERS: PCP Nurse Practitioner Family; Visit Provider Nurse Practitioner Family
DX: M47.896 Other spondylosis, lumbar region (principal); M48.061 Spinal stenosis, lumbar region without neurogenic claudication; Z96.643 Presence of artificial hip joint, bilateral
CPT/HCPCS: 72148

== ENCOUNTER 2024-12-07 15:00 | Outpatient (RCR) | payer BC, SELFPAY | END 2024-12-07 23:59 | disposition home or self-care (01) | LOC: PT 15:00 | PROVIDERS: PCP Nurse Practitioner Family; Visit Provider Nurse Practitioner Family | DX: M54.42 Lumbago with sciatica, left side (principal) | CPT/HCPCS: 97014; 97110; 97163; G0283 ==

== ENCOUNTER 2025-01-05 12:52 | Outpatient (RCR) | payer BC, SELFPAY | END 2025-01-05 23:59 | disposition home or self-care (01) | LOC: PT 12:52 | PROVIDERS: PCP Nurse Practitioner Family; Visit Provider Neurological Surgery | DX: M54.42 Lumbago with sciatica, left side (principal); F17.210 Nicotine dependence, cigarettes, uncomplicated ==

== ENCOUNTER 2025-04-13 16:13 | Emergency (ER) | payer BC, SELFPAY ==
[2025-04-13] VITALS (9 sets, daily range): BP systolic 97–125; BP diastolic 48–82; PULSE 56–63; RESP 18–20; TEMP 36.4–36.8; O2SAT 94–98; BMI 27.4
--- OUTSIDE RECORDS SUMMARY | 2025-04-13 16:35 | XMS_ITS | Clinical Summary ---
Author Organization [facility] Address [address] [place] [address] Care Team Providers Care Watershed Tender Name Role Phone Troy Ag APRN Primary Care Provider [phone] Family History Medical History Relation Name Comments Cardiac disorder Father Lung cancer Maternal Grandfather Relation Name Status Comments Father Maternal Grandfather Social History Tobacco Use Types Packs/Day Years Used Date Smoking Tobacco: Every Day Comments Unknown Sex and Gender Information Value Date Recorded Sex Assigned at Not on file Legal Sex Female 6:44 PM EDT Gender Identity Not on file Sexual Orientation Not on file Last Filed Vital Signs Vital Sign Reading Time Taken Comments Blood Pressure 123/65 11/29/2018 1:14 PM EDT Pulse 79 11/29/2018 1:14 PM EDT Temperature - - Respiratory Rate - - Oxygen Saturation - - Inhaled Oxygen Concentration - - Weight 87.8 kg (193 lb 9 oz) 10/11/2018 8:57 AM EDT Height 162.6 cm (5' 4 ) 10/11/2018 8:57 AM EDT Body Mass Index 33.23 10/11/2018 8:57 AM EDT Plan of Treatment Not on file Care Teams Watershed Tender Relationship Specialty Start Date End Date Troy Ag APRN [address] [place] [address] PCP - General 11/23/20
--- OUTSIDE RECORDS SUMMARY | 2025-04-13 16:35 | XMS_ITS | Clinical Summary ---
Author Organization [facility] Address [address] [place] [address] Care Team Providers Care Manager Home Healthcare Name Role Phone Troy Ag APRN Primary Care Provider [phone] Allergies No known active allergies Medications citalopram (CeleXA) 40 MG tablet Take 1 tablet every day by oral route as directed. Active vitamin D (ERGOCALCIFEROL ) 1.25 MG (49036 UT) capsule capsule Take 1 capsule by mouth 1 (One) Time Per Week. Active hydroCHLOROthia zide 25 MG tablet Take 1 tablet by mouth Daily. Active ibuprofen (ADVIL,MOTRIN) 800 MG tablet Take 1 tablet by mouth 3 (Three) Times a Day As Needed. for pain 5 Active lisinopril (PRINIVIL,ZESTR IL) 20 MG tablet Take 1 tablet by mouth Daily. Active metFORMIN ER (GLUCOPHAGE-XR) 500 MG 24 hr tablet Take 1 tablet by mouth Daily. 5 Active VITAMIN D, ERGOCALCIFEROL, PO Take 1 capsule by mouth 1 (One) Time Per Week. Active albuterol sulfate HFA 108 (90 Base) MCG/ACT inhaler INHALE 1 PUFF BY MOUTH EVERY 4 HOURS NEEDED Active clobetasol propionate (TEMOVATE) 0.05 % cream APPLY CREAM TOPICALLY ONCE DAILY Active estradiol (ESTRACE) 0.1 MG/GM vaginal cream INSERT 1 GRAM VAGINALLY ONCE DAILY FOR 14 DAYS Active indomethacin (INDOCIN) 50 MG capsule Take 1 capsule by mouth 3 (Three) Times a Day. Active tiZANidine (ZANAFLEX) 4 MG tablet Take 1 tablet every day by oral route for 3 days. Active Encounters Date Type Department Care Team Description 01/17/2025 11:30 AM EDT Outside Facility Service [facility] [address] [facility] [address] [place] [address] Leonard Griffiths MD 01/17/[address] [facility] [address] [facility] [address] [place] [address] Leonard Griffiths MD from Last 3 Months Family History Medical History Relation Name Comments Coronary artery disease Father Andrea subramanian Diabetes Mother Mena subramanian Relation Name Status Comments Father Andrea subramanian Alive Mother Mena subramanian Alive Social History Tobacco Use Types Packs/Day Years Used Date Smoking Tobacco: Every Day Cigarettes 1.5 47.8 Started: [birth year]/13/1977 Passive Smoke Exposure: Current Smokeless Tobacco: Never Tobacco Cessation:Ready to Q uit: Not Asked; Counseling Given: Not Answered Alcohol Use Standard Drinks/Week Comments Not Currently 0 (1 standard drink = 0.6 oz pur e alcohol) PHQ-2 Answer Date Recorded Patient Health Questionnaire-2 Score 0 01/04/2025 Comments Unknown Sex and Gender Information Value Date Recorded Sex Assigned at Not on file Legal Sex Female 2:28 PM EDT Gender Identity Not on file Sexual Orientation Not on file Last Filed Vital Signs Vital Sign Reading Time Taken Comments Blood Pressure - - Pulse - - Temperature 36.8 C (98.3 F) 12/21/2024 10:43 AM EDT Respiratory Rate - - Oxygen Saturation - - Inhaled Oxygen Concentration - - Weight 72.6 kg (160 lb) 01/04/2025 12:07 PM EDT Height 162.6 cm (5' 4 ) 01/04/2025 12:07 PM EDT Body Mass Index 27.46 01/04/2025 12:07 PM EDT Plan of Treatment Health Maintenance Due Date Last Done Comments DXA SCAN 1959 DIABETIC EYE EXAM 1969 DIABETIC FOOT EXAM 1969 URINE MICROALBUMIN-CREATININE RATIO (uACR) 1969 Pneumococcal Vaccine 50+ (1 of 2 - PCV) 1978 TDAP/TD VACCINES (1 - Tdap) 1978 MAMMOGRAM 1999 COLOGUARD 2004 COLON CANCER SCREENING 5 YEAR SIGMOIDOSCOPY 2004 COLONOSCOPY 2004 [address] CANCER SCREENING 2004 CT COLONOGRAPHY 2004 FECAL OCCULT BLOOD TEST 2004 FIT Testing (1 year) 2004 LUNG CANCER SCREENING 2009 ZOSTER VACCINE (1 of 2) 2009 ANNUAL PHYSICAL 12/21/2024 HEMOGLOBIN A1C 12/21/2024 HEPATITIS C SCREENING 12/21/2024 INFLUENZA VACCINE 02/10/2025 COVID-19 Vaccine ( season) 2025 Insurance [facility] PPO Care Teams Manager Home Healthcare Relationship Specialty Start Date End Date Troy Ag APRN [address] [place] [address] [place] [address] [place] [address] PCP - General Family Medicine 12/16/24
--- NOTE | 2025-04-13 17:14 | XR_ITS ---
PROCEDURE INFORMATION: Exam: XR Right Knee Exam date and time: 04/13/2025 5:22 PM Age: 64 years old Clinical indication: Pain; Knee; Right TECHNIQUE: Imaging protocol: Radiologic exam of the right knee. Views: 3 views. COMPARISON: No relevant prior studies available. FINDINGS: Bones/joints: Osteopenia. No fracture or malalignment. Minimal osteoarthritic spurring in the tibiofemoral compartments and patellofemoral compartment. Small knee joint effusion in the suprapatellar bursa. Soft tissues: Question medial soft tissue swelling. Vasculature: Mild calcific atherosclerosis. IMPRESSION: 1. No osseous injuries are identified. 2. Small knee joint effusion. Question medial soft tissue swelling. 3. Osteopenia and minor osteoarthritic spurring.
--- NOTE | 2025-04-13 17:22 | ED_ITS ---
<Statement entered by Carmen Martinez DO - 04/13/25 23:01> I was consulted by the RAFEAL, and we discussed the complexity of problems being addressed. I approve the treatment and management plan for this patient's care in the emergency department, thus performing a substantial portion of the medical decision making. Carmen Martinez DO Discharge Plan Disposition Patient Disposition: Home, Self-Care Condition: Good Prescriptions Prescriptions: New indomethacin 50 mg capsule 50 mg PO TID 5 Days Qty: 15 0RF Rx Instructions: administer with food or milk No Action clobetasol 0.05 % cream 1 applic topical DAILY Qty: 30 11RF estradiol [Estrace] 0.01 % (0.1 mg/gram) cream 1 appful vaginal DAILY Qty: 42.5 5RF Rx Instructions: for 14 days ergocalciferol (vitamin D2) 1,250 mcg (50,000 unit) capsule See Rx Instructions .ROUTE .COMPLEX Qty: 6 0RF Dose Instruction: Take 1 capsule by mouth once a week Rx Instructions: Take 1 capsule by mouth once a week citalopram 20 mg tablet See Rx Instructions .ROUTE .COMPLEX Qty: 90 0RF Dose Instruction: TAKE 1 TABLET BY MOUTH ONCE DAILY FOR ANXIETY FOR DEPRESSION Rx Instructions: TAKE 1 TABLET BY MOUTH ONCE DAILY FOR ANXIETY FOR DEPRESSION hydrochlorothiazide 25 mg tablet See Rx Instructions .ROUTE .COMPLEX Qty: 90 0RF Dose Instruction: TAKE 1 TABLET BY MOUTH ONCE DAILY FOR FLUID FOR BLOOD PRESSURE Rx Instructions: TAKE 1 TABLET BY MOUTH ONCE DAILY FOR FLUID FOR BLOOD PRESSURE ibuprofen 800 mg tablet See Rx Instructions .ROUTE .COMPLEX Qty: 90 0RF Dose Instruction: TAKE 1 TABLET BY MOUTH THREE TIMES DAILY NEEDED FOR PAIN Rx Instructions: TAKE 1 TABLET BY MOUTH THREE TIMES DAILY NEEDED FOR PAIN lisinopril 20 mg tablet See Rx Instructions .ROUTE .COMPLEX Qty: 90 0RF Dose Instruction: Take 1 tablet by mouth once daily for blood pressure Rx Instructions: Take 1 tablet by mouth once daily for blood pressure metformin 500 mg tablet extended release 24 hr See Rx Instructions .ROUTE .COMPLEX Qty: 90 3RF Dose Instruction: Take 1 tablet by mouth once daily Rx Instructions: Take 1 tablet by mouth once daily Referrals Follow up/Referrals: Troy Ag APRN [Primary Care Provider, Medical] - See instructions Activity Restrictions/Add. Instructions Additional Instructions/Restrictions: Take the indomethacin 3 times a day, 50 mg for the next 3 to 5 days. Return to the emergency department if your knee continues to get more swollen turns red you are unable to flex or move it, if you have any fevers or if you have any other acute concerns. Otherwise follow-up with your primary care provider if needed. Clinical Impressions Clinical Impression: Acute gout of right knee Stand Alone Forms Stand Alone Forms: Work/School Release Print Language Print Language: [place] Discharge ED Provider: Carmen Martinez General Adult HPI <Yudelka Reveles (ED), GENERATING [employer]ATION MECH[employer]IC - Last Filed: 04/13/25 20:59> General Chief complaint: PAIN Stated complaint: right knee pain Time Seen by Provider: 04/13/25 17:00 Mode of Arrival: Ambulatory Source of Information: Patient Description of Symptoms (Recalled from ER Triage Doc. by RN): patient presents to the ED for a right swollen knee and hypotension. She was sent by her primary care physician for further evaluation. patient denies recent surgery on the knee, but it is visibly mroe swollen than the left. jillian stated she took her BP meds yesterday. History of Present Illness HPI narrative: 64-year-old female presents to the ED today for complaint of right knee swollen. She says her doctor sent her over here for further evaluation because her blood pressure was low. Her right knee has had no injury or trauma. She has had pain for 3 days. She says it hurts to bend. It is significantly swollen and hot. Related Data Previous Rx's ?Medication ?Instructions ?Recorded ergocalciferol (vitamin D2) 1,250 See Rx Instructions .Route 04/05/21 mcg (50,000 unit) capsule .COMPLEX #6 caps citalopram 20 mg tablet See Rx Instructions .Route 0 12/12/21 .COMPLEX #90 tabs clobetasol 0.05 % topical cream 1 applic topical DAILY #30 grams 04/03/22 estradiol 0.01% (0.1 mg/gram) 1 appful vaginal DAILY # 42.5 grams 04/03/22 vaginal cream (Estrace) hydrochlorothiazide 25 mg tablet See Rx Instructions . Route 04/08/22 .COMPLEX #90 tabs ibuprofen 800 mg tablet See Rx Instructions .Route 0 04/08/22 .COMPLEX #90 tabs lisinopril 20 mg tablet See Rx Instructions .Route 0 04/08/22 .COMPLEX #90 tabs metformin 500 mg tablet,extended See Rx Instructions . Route 06/02/22 release 24 hr .COMPLEX #90 tabs indomethacin 50 mg capsule 50 mg PO TID 5 days #15 cap s 04/13/25 Allergies Allergy/AdvReac Type Severity Reaction Status Date / Time No Known Allergies Allergy Verified 11/16/24 16:21 PFSH <Yudelka Reveles (ED), GENERATING [employer]CH[employer]IC - Last Filed: 04/13/25 20:59> PFSH Disclaimer: The information contained in this section may have been updated after the patient was seen, as this information can be updated by other users. Medical History (Updated 04/13/25 @ 21:52 by Carmen Martinez DO) Sciatica Surgical History History of colon surgery History of hysterectomy History of total abdominal hysterectomy History of bilateral hip replacements History of laparoscopic cholecystectomy Social History Smoking Status: Current every day smoker tobacco type: cigarettes packs per day: 1 alcohol intake: never substance use type: denies use current occupational status: employed Travel in the last 8 weeks?: None household members: significant other housing: house current occupation: [employer] Public caffeine: Yes Have you lived/traveled outside US in past 30 days?: No Contact w/someone who lives/traveled outside US past 30 days?: No Exposure to someone with infectious disease in past 14 days?: No Do you have a fever (greater than 100.4 F or 38 C)?: No Have you tested positive for COVID-19?: No Exposed to someone with COVID-19 in past 14 days?: No Do you have a sore throat?: No Do you have a cough?: No Do you have any weakness?: No Do you have any diarrhea?: No Are you experiencing any unusual bleeding?: No Do you have any muscle aches/pain?: No Do you have any abdominal pain?: No Are you experiencing loss of taste or smell?: No Other Medical History Have you received the Flu Vaccine for this season: No Have you received the Pneumonia Vaccine: No <Yudelka Reveles (ED), [employer]ATING [employer]IC - Last Filed: 04/13/25 20:59> ROS Obtained: Yes Systems reviewed as appropriate & no additional complaints except as documented Constitutional Constitutional: Reports as per HPI Physical Exam <Yudelka Reveles (ED), GENERATING [employer] MECH[employer]IC - Last Filed: 04/13/25 20:59> General General appearance: alert Head Head exam: normocephalic Eye Eye exam: Present PERRL and EOMI ENT ENT exam: Present normal oropharynx and mucous membranes moist Neck Neck exam: Present full ROM and trachea midline Respiratory Respiratory exam: Present normal lung sounds bilaterally Cardiovascular Cardiovascular exam: Present regular rate, normal rhythm, normal heart sounds, +S1 and +S2 Extremities Exam Extremities exam: Present tenderness, normal capillary refill, edema and other (warm, swelling to right knee) Neurological Exam Neurological exam: Present alert and oriented X3 Skin Skin exam: Present warm, dry and intact Medical Decision Making <Yudelka Reveles (ED), GENERATING [employer] MECH[employer]IC - Last Filed: 04/13/25 20:59> Medical Records Screening: Per USPSTF and CDC recommendations, given the prevalence of disease in our region, it is our hospital?s policy to screen for HIV and viral Hepatitis for all patients aged 18 and over and those with ongoing risk factors. Iglesia Inquiry Pt receiving controlled substance: No Iglesia was queried for this patient: No Vital Signs: 04/13/25 16:20 04/13/25 16:57 04/13/25 17:00 Temperature 97.6 F Temperature Source Oral Pulse Rate 63 58 L Pulse Rate [Right Radial] 63 Respiratory Rate 20 Blood Pressure 105/50 L 102/54 L Blood Pressure [Left Arm] 98/48 L Blood Pressure [Right Arm] 125/48 L Blood Pressure Mean [Left Arm] 64 Blood Pressure Mean [Right Arm] 73 Blood Pressure Source Blood Pressure Source [Left Arm] Automatic Cuff Blood Pressure Source [Right Arm] Automatic Cuff Blood Pressure Position [Left Arm] Sitting Blood Pressure Position [Right Arm] Sitting 02 Sat by Pulse Oximetry 97 96 96 Oxygen Delivery Method Room Air 04/13/25 17:30 04/13/25 19:15 04/13/25 19:31 Temperature Temperature Source Pulse Rate 63 56 L 58 L Pulse Rate [Right Radial] Respiratory Rate Blood Pressure 116/63 100/59 L Blood Pressure [Left Arm] Blood Pressure [Right Arm] Blood Pressure Mean [Left Arm] Blood Pressure Mean [Right Arm] Blood Pressure Source Blood Pressure Source [Left Arm] Blood Pressure Source [Right Arm] Blood Pressure Position [Left Arm] Blood Pressure Position [Right Arm] 02 Sat by Pulse Oximetry 98 94 L 96 Oxygen Delivery Method 04/13/25 20:00 04/13/25 20:30 04/13/25 21:56 Temperature 98.2 F Temperature Source Oral Pulse Rate 58 L 56 L 61 Pulse Rate [Right Radial] Respiratory Rate 18 Blood Pressure 105/56 L 97/82 L 118/55 L Blood Pressure [Left Arm] Blood Pressure [Right Arm] Blood Pressure Mean [Left Arm] Blood Pressure Mean [Right Arm] Blood Pressure Source Automatic Cuff Blood Pressure Source [Left Arm] Blood Pressure Source [Right Arm] Blood Pressure Position [Left Arm] Blood Pressure Position [Right Arm] 02 Sat by Pulse Oximetry 95 95 Oxygen Delivery Method Room Air Lab Data Lab Results 04/13/25 16:42: WBC 13.7 H, RBC 4.06 L, Hgb 11.5 L, Hct 34.6 L, MCV 85.2, MCH 28.3, MCHC 33.2, RDW 13.1, Plt Count 374, MPV 10.0, Neut % (Auto) 72.5, Lymph % (Auto) 18.8, [place] % (Auto) 6.3, Eos % (Auto) 1.5, Baso % (Auto) 0.4, Neut # (Auto) 9.9 H, Lymph # (Auto) 2.6, [place] # (Auto) 0.9, Eos # (Auto) 0.2, Baso # (Auto) 0.1, ESR 94 H, Sodium 134 L, Potassium 2.5 L*, Chloride 97 L, Carbon Dioxide 28, Anion Gap 11.5, BUN 24 H, Creatinine 1.00, Estimated Creat Clear 64, Estimated GFR 56 L, Est GFR ( Amer) 67, Glucose 115 H, Calcium 9.8, Magnesium 1.7, Total Bilirubin 0.8, AST 21, ALT 20, Alkaline Phosphatase 99, C- Reactive Protein 81.0 H, Total Protein 7.1, Albumin 4.0, Globulin 3.1, Albumin/Globulin Ratio 1.3, Lipase 211 04/13/25 20:23: Fluid Source Synovial, Fluid Volume 13, Fluid Appearance Bloody, Fluid RBC (Auto) 35571, Fld Tot Nucleated Cell 34609, Fld Polynuclear WBCs % 65, Fld Mononuclear WBCs % 35, Synov Monosodium Urate Present, Synov Ca Pyrophos Dihyd Absent 04/13/25 16:42 04/13/25 16:42 Orders (Tests/Meds): ED MEDICATIONS Discontinued Medications Generic Name Dose Route Start Last Admin Trade Name Harriet PRN Reason Stop Dose Admin Dexamethasone Sodium Phosphate 8 mg 04/13/25 17:14 04/13/25 17:26 Dexamethasone 4mg/Ml 1ml Vial IV 04/13/25 17:15 8 mg ONCE ONE Administration Lidocaine HCl 10 ml 04/13/25 19:58 04/13/25 20:00 Lidocaine 1% 10ml Mdv IM 04/13/25 19:59 10 ml ONCE ONE Administration Oxycodone HCl 5 mg 04/13/25 17:15 04/13/25 17:26 Oxycodone 5mg Immediate Release Tablet PO 04/13/25 17:16 5 mg ONCE ONE Administration Potassium Chloride 60 meq 04/13/25 17:36 04/13/25 17:58 Potassium Chloride 20meq Tab PO 04/13/25 17:37 60 meq ONCE ONE Administration ORDERS Category Date Time Status Knee XR right 3 views [XR knee RT 3V] Stat Exams 04/13/25 17:14 Completed POCUS Point of Care (ER Only) Stat Exams 04/13/25 18:21 Completed Body Fluid: Cell Count w/ Diff Stat Lab 04/13/25 20:23 Completed CBC [Complete Blood Count Auto Diff] Stat Lab 04/13/25 16:42 Completed CRP [C-Reactive Protein] Stat Lab 04/13/25 16:42 Completed Comprehensive Metabolic Panel Stat Lab 04/13/25 16:42 Completed Erythrocyte Sedimentation Rate Stat Lab 04/13/25 16:42 Completed Lipase Stat Lab 04/13/25 16:42 Completed Magnesium Stat Lab 04/13/25 16:42 Completed Synovial Fluid Crystals Stat Lab 04/13/25 20:23 Completed Body Fluid Cult & Gram Stain Stat Micro 04/13/25 20:23 Results Medical Decision Narrative: patient is a 64-year-old female presenting to the emergency department for evaluation of right knee swelling and pain. Patient is hemodynamically stable and nontoxic-appearing upon arrival, afebrile. Differential diagnosis includes septic bursitis, knee injury, among others. Workup will be conducted with hematologic labs, specific imaging. Initial inventions include crystalloid bolus, analgesics. Initial workup reviewed by me hematologic labs are remarkable for white count is 13.7, potassium was 2.5 which was replaced here in the ED. CRP was 81, synovial fluid was bloody in appearance and the RBCs were 40,000 and they total nucleated cells were 38,000 820. We are still waiting on the rest of the results. I gave report to Dr. Martinez. <Carmen Martinez, DO - Last Filed: 04/13/25 23:00> Medical Records Medical records reviewed: Yes I reviewed the patient's medical records. Vital Signs: 04/13/25 16:20 04/13/25 16:57 04/13/25 17:00 Temperature 97.6 F Temperature Source Oral Pulse Rate 63 58 L Pulse Rate [Right Radial] 63 Respiratory Rate 20 Blood Pressure 105/50 L 102/54 L Blood Pressure [Left Arm] 98/48 L Blood Pressure [Right Arm] 125/48 L Blood Pressure Mean [Left Arm] 64 Blood Pressure Mean [Right Arm] 73 Blood Pressure Source Blood Pressure Source [Left Arm] Automatic Cuff Blood Pressure Source [Right Arm] Automatic Cuff Blood Pressure Position [Left Arm] Sitting Blood Pressure Position [Right Arm] Sitting 02 Sat by Pulse Oximetry 97 96 96 Oxygen Delivery Method Room Air 04/13/25 17:30 04/13/25 19:15 04/13/25 19:31 Temperature Temperature Source Pulse Rate 63 56 L 58 L Pulse Rate [Right Radial] Respiratory Rate Blood Pressure 116/63 100/59 L Blood Pressure [Left Arm] Blood Pressure [Right Arm] Blood Pressure Mean [Left Arm] Blood Pressure Mean [Right Arm] Blood Pressure Source Blood Pressure Source [Left Arm] Blood Pressure Source [Right Arm] Blood Pressure Position [Left Arm] Blood Pressure Position [Right Arm] 02 Sat by Pulse Oximetry 98 94 L 96 Oxygen Delivery Method 04/13/25 20:00 04/13/25 20:30 04/13/25 21:56 Temperature 98.2 F Temperature Source Oral Pulse Rate 58 L 56 L 61 Pulse Rate [Right Radial] Respiratory Rate 18 Blood Pressure 105/56 L 97/82 L 118/55 L Blood Pressure [Left Arm] Blood Pressure [Right Arm] Blood Pressure Mean [Left Arm] Blood Pressure Mean [Right Arm] Blood Pressure Source Automatic Cuff Blood Pressure Source [Left Arm] Blood Pressure Source [Right Arm] Blood Pressure Position [Left Arm] Blood Pressure Position [Right Arm] 02 Sat by Pulse Oximetry 95 95 Oxygen Delivery Method Room Air Lab Data Lab results reviewed: Yes I reviewed the patient's lab results. Lab Results 04/13/25 16:42: WBC 13.7 H, RBC 4.06 L, Hgb 11.5 L, Hct 34.6 L, MCV 85.2, MCH 28.3, MCHC 33.2, RDW 13.1, Plt Count 374, MPV 10.0, Neut % (Auto) 72.5, Lymph % (Auto) 18.8, [place] % (Auto) 6.3, Eos % (Auto) 1.5, Baso % (Auto) 0.4, Neut # (Auto) 9.9 H, Lymph # (Auto) 2.6, [place] # (Auto) 0.9, Eos # (Auto) 0.2, Baso # (Auto) 0.1, ESR 94 H, Sodium 134 L, Potassium 2.5 L*, Chloride 97 L, Carbon Dioxide 28, Anion Gap 11.5, BUN 24 H, Creatinine 1.00, Estimated Creat Clear 64, Estimated GFR 56 L, Est GFR ( Amer) 67, Glucose 115 H, Calcium 9.8, Magnesium 1.7, Total Bilirubin 0.8, AST 21, ALT 20, Alkaline Phosphatase 99, C- Reactive Protein 81.0 H, Total Protein 7.1, Albumin 4.0, Globulin 3.1, Albumin/Globulin Ratio 1.3, Lipase 211 04/13/25 20:23: Fluid Source Synovial, Fluid Volume 13, Fluid Appearance Bloody, Fluid RBC (Auto) 48726, Fld Tot Nucleated Cell 01172, Fld Polynuclear WBCs % 65, Fld Mononuclear WBCs % 35, Synov Monosodium Urate Present, Synov Ca Pyrophos Dihyd Absent Orders (Tests/Meds): ED MEDICATIONS Discontinued Medications Generic Name Dose Route Start Last Admin Trade Name Freq PRN Reason Stop Dose Admin Dexamethasone Sodium Phosphate 8 mg 04/13/25 17:14 04/13/25 17:26 Dexamethasone 4mg/Ml 1ml Vial IV 04/13/25 17:15 8 mg ONCE ONE Administration Lidocaine HCl 10 ml 04/13/25 19:58 04/13/25 20:00 Lidocaine 1% 10ml Mdv IM 04/13/25 19:59 10 ml ONCE ONE Administration Oxycodone HCl 5 mg 04/13/25 17:15 04/13/25 17:26 Oxycodone 5mg Immediate Release Tablet PO 04/13/25 17:16 5 mg ONCE ONE Administration Potassium Chloride 60 meq 04/13/25 17:36 04/13/25 17:58 Potassium Chloride 20meq Tab PO 04/13/25 17:37 60 meq ONCE ONE Administration ORDERS Category Date Time Status Knee XR right 3 views [XR knee RT 3V] Stat Exams 04/13/25 17:14 Completed POCUS Point of Care (ER Only) Stat Exams 04/13/25 18:21 Completed Body Fluid: Cell Count w/ Diff Stat Lab 04/13/25 20:23 Completed CBC [Complete Blood Count Auto Diff] Stat Lab 04/13/25 16:42 Completed CRP [C-Reactive Protein] Stat Lab 04/13/25 16:42 Completed Comprehensive Metabolic Panel Stat Lab 04/13/25 16:42 Completed Erythrocyte Sedimentation Rate Stat Lab 04/13/25 16:42 Completed Lipase Stat Lab 04/13/25 16:42 Completed Magnesium Stat Lab 04/13/25 16:42 Completed Synovial Fluid Crystals Stat Lab 04/13/25 20:23 Completed Body Fluid Cult & Gram Stain Stat Micro 04/13/25 20:23 Results Medical Decision Narrative: Patient is a 64-year-old female presenting to the emergency department for evaluation of right knee swelling and pain. Patient is hemodynamically stable and nontoxic-appearing upon arrival, afebrile. Differential diagnosis includes septic bursitis, knee injury, septic arthritis, gout, knee effusion, among others. Workup will be conducted with hematologic labs, x-rays and [id number] ultrasound. Initial inventions include crystalloid bolus, analgesics. Initial workup reviewed by ar hematologic labs are remarkable for white count is 13.7, potassium was 2.5 which was replaced here in the ED. CRP was 81, synovial fluid was bloody in appearance and the RBCs were 40,000 and they total nucleated cells were 38,820. We are still waiting on the rest of the results. I gave report to Dr. Martinez. Carmen Martinez, DO I assumed care of the patient at 2200. X-ray of the right knee showed knee effusion but no other acute bony pathology. Patient synovial fluid showed 38,820 total nucleated cells, 40,000 red blood cells. Patient had 65% polys and nuclear white blood cells. Patient's crystals showed monosodium urate crystals but no pyrophosphate. Patient's Gram stain showed white blood cells but no organisms. Given patient synovial fluid I feel that patient's symptoms are most consistent with gout. Patient reports that she has had gout of her right toe before. Patient states that in the past she has had colchicine but this has not helped. Patient states that the indomethacin was the most helpful. Patient states that she has some of this at home. Patient was sent with an additional prescription for indomethacin. Patient was advised to return to the emergency department if her knee progressed and got more swollen got red and had worse range of motion or developed any fevers. At this time, patient was otherwise discharged home in stable condition, return precautions were discussed. Critical Care <Yudelka Reveles (ANA), GENERATING [employer] MECH[employer]IC - Last Filed: 04/13/25 20:59> Critical Care Time Critical Care Time: No
[2025-04-13 17:23] LABS: Hematocrit 34.6 % (37.0-47.0); Hemoglobin 11.5 g/dL (12.2-16.2); Immature Granulocytes % 0.5 %; Mean Corpuscular HGB Conc 33.2 g/dL (31.8-35.4); Mean Corpuscular Hemoglobin 28.3 pg (27.0-31.2); Mean Corpuscular Volume 85.2 fl (81-99); Nucleated Red Blood Cells % 0 %; Platelet Count 374 K/mm3 (142-424); Red Blood Count 4.06 M/mm3 (4.20-5.40); Red Cell Distribution Width-SD 40.6 fL; White Blood Count 13.7 K/mm3 (4.8-10.8)
[2025-04-13] MEDS: DEXAMETHASONE 4MG/ML 1ML VIAL 8 MG IV (17:26)
[2025-04-13] MEDS: OXYCODONE 5MG IMMEDIATE RELEASE TABLET 5 MG PO (17:26)
[2025-04-13 17:31] LABS: Anion Gap 11.5 mEq/L (5-15); Blood Urea Nitrogen 24 mg/dl (7-17); Carbon Dioxide 28 mmol/L (22.0-30.0); Chloride 97 mmol/L (98-107); Creatinine Clearance Estimated 64 mL/min (50-200); Creatinine,Serum 1.00 mg/dl (0.52-1.04); Estimated Glomerular Filt Rate 56 ml/min (>60); GFR (African American) 67 ML/MIN (>60); Sodium 134 mmol/L (136-145)
[2025-04-13 17:32] LABS: Alanine Aminotransferase 20 U/L (12-78); Albumin Level 4.0 g/dl (3.5-5.0); Albumin/Globulin Ratio 1.3 (1.1-1.8); Alkaline Phosphatase 99 U/L (38-126); Aspartate Amino Transferase 21 U/L (14-36); Bilirubin,Total 0.8 mg/dl (0.2-1.3); Calcium 9.8 mg/dl (8.4-10.2); Globulin 3.1 g/dL (1.3-3.2); Glucose 115 mg/dl (74-100); Lipase 211 U/L (23-300); Magnesium 1.7 mg/dl (1.6-2.3); Total Protein,Serum 7.1 g/dl (6.3-8.2)
[2025-04-13 17:35] LABS: Potassium 2.5 mmoL/L (3.5-5.1)
[2025-04-13 17:37] LABS: C-Reactive Protein 81.0 mg/L (0-4)
[2025-04-13] MEDS: POTASSIUM CHLORIDE 20MEQ TAB 60 MEQ PO (17:58)
--- NOTE | 2025-04-13 19:06 | PC.NURSE ---
received report from Anahi Magaña. this RN taking over care for this patient at this time.
[2025-04-13] MEDS: LIDOCAINE 1% 10ML MDV 10 ML IM (20:00)
--- NOTE | 2025-04-13 20:12 | PC.NURSE ---
provide Farzad Martinez MD at the patients bedside
[2025-04-13 20:50] LABS: Appearance,Body Fld. Bloody; Source, Body Fld. Synovial
[2025-04-13 20:51] LABS: Volume,Body Fld. 13 mL
[2025-04-13 20:52] LABS: RBC,Body Fluid 40000 cells/uL (< 10 X 10^3); TNC,Body Fluid 38820 cells/uL (< 1000)
[2025-04-13 21:27] LABS: Ca pyrophosphate dihyd Absent
[2025-04-13 21:29] LABS: Mononuclear WBCs,Body Fluid 35 %; Polynuclear WBC,Body Fluid 65 %
== END 2025-04-13 22:20 | disposition home or self-care (01) ==
PROVIDERS: Nurse Practitioner; Emergency Provider Student in an Organized Health Care Education/Training Program; PCP Nurse Practitioner Family
DX: M10.061 Idiopathic gout, right knee (principal); M25.461 Effusion, right knee; E87.6 Hypokalemia; M25.561 Pain in right knee; F17.210 Nicotine dependence, cigarettes, uncomplicated; E11.9 Type 2 diabetes mellitus without complications
CPT/HCPCS: 20610; 73562; 80053; 83690; 83735; 85025; 85651; 86140; 87070; 87205; 89051; 89060; 96374; 99285; J1100; J2003